=== PATIENT | male | born 1950 | race Caucasian/White ===

== ENCOUNTER 2016-04-01 14:13 | Inpatient (IN) ==
[2016-04-01] MEDS ORDERED: 0.9 % Sodium Chloride 1,000 ML IVC ONE (15:19)
[2016-04-01] MEDS ORDERED: Ondansetron 4 MG/2 ML VIAL IVP ONE (15:20)
--- NOTE | 2016-04-01 15:29 | Emergency Department Note ---
Addendum entered and electronically signed by Flo Coleman DO 04/02/16 00:47: Original Note: Disposition Clinical Impression: Cough, HCAP (healthcare-associated pneumonia) Sepsis Qualifiers: Sepsis type: sepsis due to unspecified organism Qualified Code(s): A41.9 - Sepsis, unspecified organism Melanoma Qualifiers: Melanoma location: upper extremity including shoulder Laterality: right Qualified Code(s): C43.61 - Malignant melanoma of right upper limb, including shoulder Disposition: Admitted As Inpatient Condition: Serious Time of Disposition: 18:25 Nausea/Vomiting/Diarrhea HPI - General Chief complaint: ED Nausea/Vomiting/Diarrhea Stated complaint: N/V/D Time Seen by Provider: 04/01/16 15:02 Source: patient Limitations: no limitations Nursing Notes Reviewed: Yes Vital Signs Reviewed: Yes - History of Present Illness HPI Narrative: Patient is a 65-year-old male who complains of nausea vomiting and diarrhea 4 days. Patient presents with temperature of 100.9, pulse rate 105, respirations 18, blood pressure 112/77, O2 sat 93 and room air. Patient admits to having a cough and intermittent diarrhea and vomiting. Patient states it is not every day though. Patient's fiancee states he has been having a fever of 101 which comes sounds about 99 with Tylenol but goes back up. Patient admits to fatigue , dry cough, and chills. Patient denies a pain. He has a history of melanoma removal of the right shoulder and lymphoid removal the right axillary line about close the patient's armpit. Patient states last time he had high neoplastic drug treatment was back in 02/10/2016. Previous one stent and is on Plavix but has not been able to take it every day secondary to how he is feeling - Related Data Home Medications Medication Instructions Recorded Confirmed Amlodipine [Norvasc] 5 mg PO DAILY 04/01/16 04/01/16 Atorvastatin Calcium [Lipitor] 20 mg PO DAILY 04/01/16 04/01/16 Clopidogrel [Plavix] 75 mg PO DAILY 04/01/16 04/01/16 Fexofenadine HCl 60 mg PO DAILY PRN 04/01/16 04/01/16 Guaifenesin [Mucinex] 600 mg PO BID PRN 04/01/16 04/01/16 Levothyroxine [Synthroid] 25 mcg PO DAILY 04/01/16 04/01/16 Melatonin 5 mg PO HS 04/01/16 04/01/16 Olmesartan Medoxomil [Benicar] 40 mg PO DAILY 04/01/16 04/01/16 Temazepam [Restoril] 15 mg PO HS 04/01/16 04/01/16 Allergies Allergy/AdvReac Type Severity Reaction Status Date / Time No Known Allergies Allergy Verified 02/15/16 16:32 Review of Systems: History admits to nausea, vomiting, diarrhea, cough, fever, chills shortness of breath periodically, wooziness. Patient denies TADEO, sinus pressure, rhinorrhea, chest pain, no Abdominal pain, dysuria, leg swelling, calf pain. All systems ED: reviewed and negative except as stated. Past Medical History - Past Medical History Attestation: Yes The following information was validated with the patient. Medical history: Reports: cancer, coronary artery disease, hypertension, other Psychiatric history: Reports: no psych history - Social History Smoking Status: Former smoker Smokeless Tobacco Status: No Alcohol use: Reports: rarely Drug use: Reports: none Physical Exam Vital Signs Temperature 100.9 F H 04/01/16 14:14 Pulse Rate 105 04/01/16 14:14 Respiratory Rate 18 04/01/16 14:14 Blood Pressure 112/77 04/01/16 14:14 O2 Sat by Pulse Oximetry 93 L 04/01/16 14:14 Temperature 100.9 F H 04/01/16 14:14 Pulse Rate 105 04/01/16 14:14 Respiratory Rate 18 04/01/16 14:14 Blood Pressure 112/77 04/01/16 14:14 O2 Sat by Pulse Oximetry 93 L 04/01/16 14:14 Oxygen Delivery Oxygen Delivery Room Air -General Appearance: Patient is a 65-year-old male who is alert and oriented 3 and in no acute distress. Patient appears exhausted but is able to walk and sit up and speak words of throughout the exam. Patient appears to have slightly increased work of breathing - Head Head exam: atraumatic, normocephalic, normal inspection - Eye Eye exam: Present: normal appearance, PERRL, EOMI, negative for scleral icterus negative for conjunctival pallor - ENT ENT exam: normal exam, normal oropharynx, mucous membranes dry, with thick saliva - Neck Neck exam: Present: normal inspection, full ROM, trachea midline, negative JVD, anterior cervical or submandibular lymphadenopathy - Chest Chest inspection: Present: Patient has bilateral equal rise and fall of chest wall. Non-tender to palpation. 5 cm surgical scar right axillary line just distal to the axilla - Respiratory Respiratory exam: Clear to auscultation bilaterally without wheezes but has fine rales at the base of right lung no rhonchi heard in either lung Cardiovascular Cardiovascular exam: Present: irregular rate, normal rhythm, normal heart sounds , without murmurs rubs or gallops. - Abdominal Exam Abdominal exam: Present: soft, nondistended, Non-Tender light and deep palpation in all quadrants. Bowel sounds normoactive throughout all 4 quadrants. Negative for hyper or hyperresonance. - Extremities Exam Extremities exam: Present: normal inspection, full ROM, and centimeters scar on right deltoid secondary to surgical excision of melanoma - Back Exam Back exam: Present: normal inspection, full ROM. Absent: tenderness, CVA tenderness (R), CVA tenderness (L) - Psychiatric Psychiatric exam: Present: normal affect, normal mood - Skin Skin exam: Present: warm, dry, intact, normal color - General Limitations: no limitations General appearance: alert - Head Head exam: atraumatic, normocephalic Course Course Narrative: Patient was seen and examined, labs ordered, patient is positive for 2 out 4 for SIRS criteria with unclear source of infection. Sepsis work up has been ordered - Reevaluation(s) Reevaluation #1: Pt was rechecked and states that he feels cold and was given warm blankets. He states he feels better afterwards. Time: 15:30 Reevaluation #2: Patient recheck, patient's labs and being drawn right now. Patient states he still feels okay patient now has a jacket as well as a toboggan on. Time: 16:09 Reevaluation #3: Pt still doing well, just feeling cold again. Pt was placed on 3L O2 via NC Time: 16:33 Additional Reevaluation(s): 1700hrs Pt taken for CTA chest. - Consultations Consultation #1: Dr. Islas accepted for admission Time: 18:20 Vital Signs Temperature 100.9 F H 04/01/16 14:14 Pulse Rate 105 04/01/16 14:14 Respiratory Rate 18 04/01/16 14:14 Blood Pressure 112/77 04/01/16 14:14 O2 Sat by Pulse Oximetry 93 L 04/01/16 14:14 Temperature 100.9 F H 04/01/16 14:14 Pulse Rate 109 04/01/16 16:58 Respiratory Rate 96 04/01/16 18:37 Blood Pressure 128/75 04/01/16 18:37 O2 Sat by Pulse Oximetry 95 04/01/16 16:58 Oxygen Delivery Oxygen Delivery Room Air Nausea/Vomiting/Diarrhea - [facility] Narrative Medical decision making narrative: Patient complains of nausea vomiting diarrhea and a history of immunosuppressive therapy presents with a dry cough and febrile at 100.9. I am concerned for sepsis, pneumonia, PE, acute viral respiratory injury illness. Patient is tachycardiac at 105 bpm. EKG shows sinus tach with no acute ST deviations. Patient is to out of 4 for SIRS, no clear source of infection. Given patient has a dry cough and appears dehydrated, 2 view chest x-ray was ordered, 4 mg of Zofran for nausea, and 1 L normal saline. I am concerned for sepsis with his gentleman and have ordered full sepsis workup. WBC 13.0 and lactic acid 2.8. Patient's presentation and history consider this patient's septic until otherwise proven. Patient started on Levaquin, Zosyn, vancomycin for hospitalhealthcare associated-acquired pneumonia is noted the patient was admitted to the [facility] a day stay 1 month ago. Chest x-ray was clear of any abnormalities, patient continues to be tachycardic and has signs of hypoxia. Ordered CTA to check for pulmonary embolism. Patient has a well's score for 4 heart rate greater than 100, possible immobilization greater than 3 days on last returns to the [facility], and malignancy which treatment in the past 6 months. - Medical Records Medical records reviewed: Yes I reviewed the patient's medical records. - Lab Data Result diagrams: 04/01/16 16:08 04/01/16 16:08 Lab Results 04/01/16 04/01/16 04/01/16 Range/Units 16:08 16:08 16:08 WBC 13.0 H (4.3-11.1) K/mcL RBC 4.74 (4.19-5.50) M/mcL Hgb 14.6 (12.9-16.9) g/dL Hct 42.5 (37.5-50.1) % MCV 89.7 (83.0-100.0) fL MCH 30.8 (28.0-33.3) pg MCHC 34.4 (31.6-35.5) g/dL RDW 12.4 (11.5-14.5) % Plt Count 342 (140-400) K/mcL MPV 9.1 L (9.4-12.4) fL Immature Gran % 0.4 (0-4) % Seg Neutrophils % 56.8 % Lymphocytes % 26.9 % Monocytes % 8.5 % Eosinophils % 6.8 % Basophils % 0.6 % Neutrophils # 7.4 (1.6-8.9) K/mcL Lymphocytes # 3.5 (0.6-4.6) K/mcL Monocytes # 1.1 (0.0-1.3) K/mcL Eosinophils # 0.9 H (0.0-0.6) K/mcL Basophils # 0.1 (0.0-0.2) K/mcL PT (9.4-12.1) Seconds INR APTT (26.0-36.0) Seconds Sodium 129 L (136-145) mEq/L Potassium 4.5 (3.5-4.5) mEq/L Chloride 97 L (98-109) mEq/L Carbon Dioxide 20 (19-29) mEq/L BUN 12 (8-26) mg/dL Creatinine 0.98 (0.72-1.25) mg/dL Est GFR ( Amer) > 60 (> 60) Est GFR (Non-Af Amer) > 60 (> 60) BUN/Creatinine Ratio 12 (6-26) Glucose 84 (70-99) mg/dL Calculated Osmolality 267 L (280-300) Lactic Acid (0.5-2.2) mmol/L Calcium 9.7 (8.6-10.8) mg/dL Phosphorus (2.3-4.7) mg/dL Magnesium (1.6-2.6) mg/dL Total Bilirubin (0.2-1.2) mg/dL Direct Bilirubin (0.0-0.5) mg/dL Indirect Bilirubin (0.0-1.2) mg/dL AST (5-34) Units/L ALT (0-55) Units/L Alkaline Phosphatase (38-126) Units/L Troponin I 0.00 (0-0.03) ng/mL Serum Total Protein (6.0-8.3) g/dL Albumin (3.5-5.0) g/dL Globulin (2.4-3.5) g/dL Albumin/Globulin Ratio (1.1-2.2) 04/01/16 04/01/16 04/01/16 Range/Units 16:08 16:08 16:08 WBC (4.3-11.1) K/mcL RBC (4.19-5.50) M/mcL Hgb (12.9-16.9) g/dL Hct (37.5-50.1) % MCV (83.0-100.0) fL MCH (28.0-33.3) pg MCHC (31.6-35.5) g/dL RDW (11.5-14.5) % Plt Count (140-400) K/mcL MPV (9.4-12.4) fL Immature Gran % (0-4) % Seg Neutrophils % % Lymphocytes % % Monocytes % % Eosinophils % % Basophils % % Neutrophils # (1.6-8.9) K/mcL Lymphocytes # (0.6-4.6) K/mcL Monocytes # (0.0-1.3) K/mcL Eosinophils # (0.0-0.6) K/mcL Basophils # (0.0-0.2) K/mcL PT 15.4 H (9.4-12.1) Seconds INR 1.4 APTT 36.3 H (26.0-36.0) Seconds Sodium (136-145) mEq/L Potassium (3.5-4.5) mEq/L Chloride (98-109) mEq/L Carbon Dioxide (19-29) mEq/L BUN (8-26) mg/dL Creatinine (0.72-1.25) mg/dL Est GFR ( Amer) (> 60) Est GFR (Non-Af Amer) (> 60) BUN/Creatinine Ratio (6-26) Glucose (70-99) mg/dL Calculated Osmolality (280-300) Lactic Acid 2.8 H (0.5-2.2) mmol/L Calcium (8.6-10.8) mg/dL Phosphorus 4.1 (2.3-4.7) mg/dL Magnesium 1.5 L (1.6-2.6) mg/dL Total Bilirubin 1.3 H (0.2-1.2) mg/dL Direct Bilirubin 0.6 H (0.0-0.5) mg/dL Indirect Bilirubin 0.7 (0.0-1.2) mg/dL AST 22 (5-34) Units/L ALT 12 (0-55) Units/L Alkaline Phosphatase 137 H (38-126) Units/L Troponin I (0-0.03) ng/mL Serum Total Protein 8.3 (6.0-8.3) g/dL Albumin 3.4 L (3.5-5.0) g/dL Globulin 4.9 H (2.4-3.5) g/dL Albumin/Globulin Ratio 0.7 L (1.1-2.2) - Radiology Data Radiology results reviewed: No I reviewed the patient's radiology results. Chest X-Ray 04/01/16 15:19 IMPRESSION: 1. No radiographic finding to account for patient's cough and fever. D/ / Srinivasan Sheehan MD / Srinivasan Sheehan MD Interpreting Provider: Srinivasan Sheehan MD - EKG Data EKG attestation: Yes I reviewed and interpreted this EKG. EKG results narrative: EKG dated 04/01/2016 at 1544 hrs. shows a tachycardic heart rate of 10 4 bpm with an underlying sinus rhythm. EKG shows right bundle-branch block, but previous EKG dated 1128 2015 shows a sinus rhythm at a rate of 92 beats minute with bundle-branch block of EKGs looked similar to the exception of the rate. Attestation Statement - Attestation Attestation: I examined this patient and my medical decision-making was reviewed with the Resident Physician. I agree with the documented findings, disposition and treatment plan as described except to the extent set forth below. Fever, dehydration, and 3/4 positive SIRS criteria. Has cough, left basilar rales, hypoxia. PE ruled out. No other source of infection, suspicious for pneumonia not seen on XR d/t dehydration, suspect that we will see an infiltrate after hydration. Treat for HCAP, 30 cc/kg fluids given d/t elevated lactate. Admitted.
[2016-04-01 16:19] LABS: Basophils # 0.1 K/mcL (0.0-0.2); Basophils % 0.6 %; Eosinophils # 0.9 K/mcL (0.0-0.6); Eosinophils % 6.8 %; Hematocrit 42.5 % (37.5-50.1); Hemoglobin 14.6 g/dL (12.9-16.9); Immature Granulocytes % 0.4 % (0-4); Lymphocytes # 3.5 K/mcL (0.6-4.6); Lymphocytes % 26.9 %; Mean Corpuscular HGB Conc 34.4 g/dL (31.6-35.5); Mean Corpuscular Hemoglobin 30.8 pg (28.0-33.3); Mean Corpuscular Volume 89.7 fL (83.0-100.0); Mean Platelet Volume 9.1 fL (9.4-12.4); Monocytes # 1.1 K/mcL (0.0-1.3); Monocytes % 8.5 %; Neutrophils # 7.4 K/mcL (1.6-8.9); Platelet Count 342 K/mcL (140-400); Red Blood Count 4.74 M/mcL (4.19-5.50); Red Cell Distribution Width 12.4 % (11.5-14.5); Segmented Neutrophils % 56.8 %
[2016-04-01 16:23] LABS: INR 1.4; Prothrombin Time 15.4 Seconds (9.4-12.1)
[2016-04-01 16:26] LABS: Activated Partial Thrombo Time 36.3 Seconds (26.0-36.0)
[2016-04-01 16:32] LABS: BUN/Creatinine Ratio 12 (6-26); Blood Urea Nitrogen 12 mg/dL (8-26); Calcium 9.7 mg/dL (8.6-10.8); Carbon Dioxide 20 mEq/L (19-29); Chloride 97 mEq/L (98-109); Glucose 84 mg/dL (70-99); Osmolality,Calculated 267 (280-300); Potassium 4.5 mEq/L (3.5-4.5); Sodium 129 mEq/L (136-145); eGFR For African Americans > 60 (> 60); eGFR For Non-African Americans > 60 (> 60)
[2016-04-01 16:33] LABS: Albumin 3.4 g/dL (3.5-5.0); Albumin/Globulin Ratio 0.7 (1.1-2.2); Bilirubin,Direct 0.6 mg/dL (0.0-0.5); Bilirubin,Indirect 0.7 mg/dL (0.0-1.2); Bilirubin,Total 1.3 mg/dL (0.2-1.2); Globulin 4.9 g/dL (2.4-3.5); Magnesium 1.5 mg/dL (1.6-2.6); Phosphorous 4.1 mg/dL (2.3-4.7); Total Protein 8.3 g/dL (6.0-8.3)
[2016-04-01] MEDS ORDERED: Levofloxacin 750 MG/150 ML 750 MG/150 ML BAG IVPB ONE (16:54)
[2016-04-01] MEDS ORDERED: Vancomycin 1,250 MG in D5% in Water 250 ML IVPB ONE (16:54)
[2016-04-01] MEDS ORDERED: Piperacillin/Tazobactam 3.375 GM in D5% in Water (Mini-Bag+) 100 ML IVPB ONE (16:54)
[2016-04-01] MEDS: 0.9 % Sodium Chloride 1,000 ML IVC SCH ×2 (17:30→19:40)
[2016-04-01 18:56] LABS: Bilirubin,Urine Negative (Negative); Blood,Urine Small (Negative); Clarity,Urine Clear (Clear); Color,Urine Yellow (Yellow); Glucose,Urine (UA) Normal (Normal); Ketones,Urine Trace mg/dL (Negative); Leukocyte Esterase,Urine Negative (Negative); Nitrite,Urine Negative (Negative); PH,Urine 5.5 pH Units (5.0-8.0); Protein,Urine Negative (Neg-Trace); Specific Gravity,Urine > 1.030 (1.010-1.025); Urobilinogen,Urine Normal (Normal)
[2016-04-01 18:58] LABS: Bacteria,Urine None Seen per hpf (None-Few); Hyaline Casts,Urine None Seen per lpf (None-Few); RBC,Urine 0-3 per hpf (0-3); Squamous Epithelial Cell,Urine Few per lpf (None-Few); WBC,Urine 0-3 per hpf (0-3)
[2016-04-01] MEDS ORDERED: *HR* Promethazine 25 MG/ML VIAL IVP PRN (21:25)
[2016-04-01] MEDS ORDERED: Naloxone 0.4 MG/ML INJ IVP PRN (21:25)
[2016-04-01] MEDS ORDERED: *HR* OxyCODONE Immed Rel 5 MG TABLET PO PRN (21:25)
[2016-04-01] MEDS ORDERED: Magnesium Sulfate 2 GM in D5% in Water 100 ML IVPB ONE (21:25)
[2016-04-01] MEDS ORDERED: Acetaminophen 325 MG TABLET PO PRN (21:25)
[2016-04-01] MEDS ORDERED: *HR* Morphine 2 MG/ML SYRINGE IVP PRN (21:25)
[2016-04-01] MEDS ORDERED: Albuterol 2.5 MG/3 ML NEBULIZER IH PRN (21:25)
[2016-04-01] MEDS ORDERED: 0.9 % Sodium Chloride 1,000 ML IVC SCH (21:30)
--- NOTE | 2016-04-01 21:50 | Internal Med History&Physical ---
Date of Encounter: 04/01/16 Time of Encounter: 21:00 Assessment and Plan (1) Nausea, vomiting, and diarrhea Current visit: Yes Status: Acute . (2) History of malignant melanoma Current visit: Yes Status: Chronic . (3) Obesity (BMI 30-39.9) Current visit: Yes Status: Chronic . (4) Hypertension Current visit: Yes Status: Chronic . Qualifiers: Hypertension type: unspecified secondary hypertension Qualified Code(s): I15.9 - Secondary hypertension, unspecified; I15 - Secondary hypertension (5) Dyslipidemia Current visit: Yes Status: Chronic . (6) CAD (coronary artery disease), [place] coronary artery Current visit: Yes Status: Chronic . Qualifiers: [place] vs. transplanted heart: [place] heart Associated angina: without angina Qualified Code(s): I25.10 - Atherosclerotic heart disease of [place] coronary artery without angina pectoris (7) History of PTCA Current visit: Yes Status: Chronic . (8) Systemic inflammatory response syndrome (SIRS) Current visit: Yes Status: Acute . (9) Acute and chronic respiratory failure with hypoxia Current visit: Yes Status: Acute . (10) Hyponatremia with decreased serum osmolality Current visit: Yes Status: Acute . (11) Lactic acidosis Current visit: Yes Status: Acute . (12) Hypomagnesemia Current visit: Yes Status: Acute . (13) Transaminitis Current visit: Yes Status: Acute . (14) HCAP (healthcare-associated pneumonia) Current visit: Yes Status: Acute . (15) Sepsis Current visit: Yes Status: Acute . Qualifiers: Sepsis type: sepsis due to unspecified organism Qualified Code(s): A41.9 - Sepsis, unspecified organism (16) Acute gastroenteritis Current visit: Yes Status: Acute . (17) Atypical pneumonia Current visit: Yes Status: Acute . Internal Medicine - H&P: HPI Chief complaint: Nausea vomiting diarrhea Admitted From: Emergency Dept Plans for Post Hospital Care: Home History of present illness: Mr. Hancock is a 65 year old male with medical history significant for CAD/PTCA stent, hypertension, dyslipidemia, internal hemorrhoids/hematochezia, diverticulosis coli, sleep disorder, hypothyroidism, allergic rhinitis, H/O melanoma s/p excision+adjuvant chemotherapy, osteoarthritis, osteopenia, obesity , former smoker. The patient was visited and interviewed and examined. The patient is admitted to [facility] via the emergency department when he presented with complaints of intractable nausea vomiting and diarrhea. Patient presented with symptoms of progressive over a 4-5 day period of time. Patient reported subjective fevers chills or malaise. She had been measured as high as 101 but responsive to Tylenol. Cough intermittently productive of scant sputum noted. Intermittent diarrhea and nausea with vomiting noted. No evidence for hematemesis melena (. Denied dysuria frequency hematuria. Patient acknowledges generalized malaise and easy fatigability by cough shortness of air. Patient also carries a history of malignant melanoma status post excision from right shoulder as well as lymphoid tissue removal right axillary line last chemotherapy received in January 2016. He denies influenza vaccination this season or pneumococcal vaccinations. Findings in the ED: Temperature 100.9 pulse 105-109 respiration 18-26 BP 112-128/75-77 O2 saturation 93-95% room air. WBC 13 hemoglobin 14.6 platelets 342,000. MPV 9.1. Differential shows an increase in neutrophils. Metabolic panel showed sodium 129 chloride 97. BUN 12 creatinine 0.98. Osmolality 267. Troponin 0.0. PT 15.4 INR 1.4 PTT 36.3. Lactic acid 2.8. Hepatic function notes total bilirubin 1.3 direct 0.6. Alkaline phosphatase 137. Albumin 3.4-8.3 globulin 4.9. Magnesium 1.5 phosphorus 4.1. Chest x-ray demonstrated no radiographic evidence of acute or active cardiopulmonary process. Calcified granulomata and right lung. Cardiomediastinal silhouette within normal limits. Sclera no focal consolidation or effusion or edema or pneumothorax. CTA chest finds no evidence of pulmonary embolic disease. Bilateral pulmonary infiltrates predominantly within the upper lobes consistent with pneumonia. Mediastinal and bilateral hilar adenopathy likely reactive. Mild atherosclerotic plaque. Scattered atherosclerotic coronary disease. No pericardial effusion. EKG shows sinus tachycardia (104) right bundle-branch block. Preliminary impressions suggest acute on chronic obstructive pulmonary disease exacerbation with associated bilateral, multifocal (atypical) pneumonia. Acute on chronic hypoxic respiratory failure and acute gastroenteritis complicates presentation. Systemic inflammatory response syndrome criteria as well as sepsis criteria for filled at the time of admission. Metabolic derangements are noted including the lactic acidemia, hyperbilirubinemia, [id number] , hypomagnesemia, etc. Her presenting concerns, past medical history, clinical findings and comorbidities the patient presents risk for further acute clinical decline and morbidity in this presentation. Workup and treatment will progress comprehensively. Cumulative laboratory and radiographic data base was reviewed, considered and discussed. Pertinent ancillary medical records including ECW and PCI documentation, when available, was reviewed and considered. Given the patient's presenting concerns, past medical history, clinical findings and symptoms, he is admitted at this time will undergo further evaluation and disposition. Orders were written as per the computerized physician order processing specialist system.......................................................................... .................... Consultative opinions will be sought as clinical circumstances justify. Pain management needs will be addressed. Laboratory and radiographic data base will be updated as appropriate. Studies include: Cultures of blood and urine and sputum, Legionella and streptococcal pneumoniae urine antigens, cardiac injury panel, BNP, metabolic and hematologic panel, magnesium, phosphorus, ionized calcium, thyroid panel, lipid profile, A1c , C-peptide, CRP, sedimentation rate, respiratory infection profile, respiratory virus panel, blood gas, urinalysis, lactic acid, serologies, etc. Precautions: Aspiration, fall, delirium protocol/surveillance initiated. Telemetry with continuous hemodynamic monitoring and pulse oximetry initiated. Empiric antibiotic coverage: (HCAP) Intravenous vancomycin, Zosyn and Levaquin pending culture data. Special studies: CTA chest, chest x-ray, telemetry, EKG. Pulmonary toilet: Incentive spirometry, aerosol bronchodilator, mucolytic, antitussive, supplemental oxygen. Corticosteroid therapy. CPAP/BiPAP supplemental oxygen delivery. Aerosol Mucomyst therapy. Fluid and electrolyte repletion efforts will proceed. Careful attention to fluid balance and renal recovery will be emphasized. Avoidance of nephrotoxic exposure and adverse drug drug interaction in the setting of impaired renal function will be monitored closely. Acute coronary syndrome protocol/surveillance initiated. DVT and PUD prophylaxis initiated: PPI therapy, intermittent pneumatic cuffs. Subcutaneous heparin/lovenox. Early ambulation will be encouraged. Immunization updates recommended. Influenza and pneumococcal vaccinations as part of ongoing preventative healthcare recommendations strongly recommended. Smoking cessation counseling briefly addressed. Patient is a former smoker. Continue vegetation were provided on an aspirin request basis Advanced care directive discussion briefly addressed. Patient does not declare any healthcare restrictions at this time. Cardiovascular risk appraisal and cardiovascular risk reduction efforts will be emphasized. Physical and occupational therapy may be consulted to assess patient's functional capacity and progress mobility if circumstances justify. Outpatient medication schedules will be reviewed confirmed and facilitated as appropriate. Reconciliation of home treatments including adjustments, substitutions and reintroduction into the treatment regimen will address necessary maintenance therapies for chronic pre-existing medical conditions. Plan of care has been reviewed and discussed in detail with the patient. Questions addressed. Hospital course in dependent on clinical findings, treatment response and potential consultative interventions. Patient is at risk for further acute clinical decline and morbidity due to his presenting chief complaints, clinical findings and comorbidities. Condition is serious. Prognosis is cautiously optimistic. CODE STATUS is full. Past Med Surg Social Fam HX - Past Medical History Source: old records reviewed Medical history: arthritis, cancer, coronary artery disease, GI bleed (Internal hemorrhoids. Diverticulosis coli.), hyperlipidemia, hypertension, osteoporosis , peripheral artery disease, thyroid disease, other Psychiatric history: no psych history - Past Surgical History Surgical History: angioplasty/stent, other (Colonoscopy. EGD.) - Social History Smoking Status: Former smoker Smokeless Tobacco Status: No Alcohol use: rarely Drug use: none - Family History Father Living Status: Hx Family Cardiac Disorders: Yes ([place]) Hx Family Respiratory Disorders: No Hx Family Cancer: No Hx Family GI Disorders: No Hx Family Genitourinary Disorders: No Hx Family Endocrine Disorder: No Hx Family Musculoskeletal Disorders: No Hx Family Neuromuscular Disorders: No Hx Family Neurologic Disorders: No Hx Family HEENT Disorders: No Hx Family Autoimmune Disorders: No Hx Family Reproductive Disorders: No Hx Family Psychosocial Disorders: No Hx Family Medical Disorders: No Mother Living Status: Still Living Hx Family Cardiac Disorders: No Hx Family Respiratory Disorders: No Hx Family Cancer: No Hx Family GI Disorders: No Hx Family Genitourinary Disorders: No Hx Family Endocrine Disorder: Yes Hx Family Musculoskeletal Disorders: No Hx Family Neuromuscular Disorders: No Hx Family Neurologic Disorders: No Hx Family HEENT Disorders: No Hx Family Autoimmune Disorders: No Hx Family Reproductive Disorders: No Hx Family Psychosocial Disorders: No Hx Family Medical Disorders: No Internal Medicine - H&P: Meds Amlodipine [Norvasc] 5 mg PO DAILY 04/01/16 [History] Atorvastatin Calcium [Lipitor] 20 mg PO DAILY 04/01/16 [History] Clopidogrel [Plavix] 75 mg PO DAILY 04/01/16 [History] Fexofenadine HCl 60 mg PO DAILY PRN 04/01/16 [History] Guaifenesin [Mucinex] 600 mg PO BID PRN 04/01/16 [History] Levothyroxine [Synthroid] 25 mcg PO DAILY 04/01/16 [History] Melatonin 5 mg PO HS 04/01/16 [History] Olmesartan Medoxomil [Benicar] 40 mg PO DAILY 04/01/16 [History] Temazepam [Restoril] 15 mg PO HS 04/01/16 [History] Allergies No Known Allergies Allergy (Verified 02/15/16 16:32) All Systems PM: A 10-system review of systems was performed and is negative for pertinent findings except as documented above in the HPI. - Constitutional Constitutional: as per HPI, fever(s), malaise, no chills, no night sweats - EENT Eyes: as per HPI, no change in vision, no discharge, no pain, no photophobia Ears: as per HPI, no ear discharge, no ear pain, no tinnitus Nose, mouth and throat: as per HPI, nasal congestion, post-nasal drip, no dysphagia, no nasal discharge, no neck pain, no sore throat - Cardiovascular Cardiovascular ROS IM: as per HPI, no chest pain, no diaphoresis, no dyspnea, no lightheadedness, no palpitations, no syncope - Respiratory Respiratory: as per HPI, cough, dyspnea, chest congestion, other, no wheezing, no excessive phlegm production - Gastrointestinal Gastrointestinal: as per HPI, change in bowel habits, diarrhea, nausea, vomiting , other, no abdominal pain, no coffee ground emesis, no hematemesis, no hematochezia, no melena - Genitourinary Genitourinary ROS male: as per HPI, no difficulty urinating, no dysuria, no hematuria - Musculoskeletal Musculoskeletal ROS IM: as per HPI, myalgias, no numbness, no tingling - Integumentary Integumentary IM: as per HPI, no rash, no unusual bruising - Neurological Neurological ROS: as per HPI, no confusion, no convulsions, no focal weakness, no numbness, no tingling, no tremor(s) - Psychiatric Psychiatric: as per HPI - Endocrine Endocrine IM: as per HPI - Hematologic/Lymphatic Hematologic/Lymphatic: as per HPI, no easy bruising - Allergic/Immunologic Allergic/Immunologic: as per HPI - Constitutional Vitals: Temp Pulse Resp BP Pulse Ox 98.8 F 96 24 118/65 96 04/01/16 19:29 04/01/16 19:29 04/01/16 19:29 04/01/16 19:29 04/01/16 19:34 General appearance: Present: cooperative, A&O X 3, obese, severe distress, answers questions appropriately - Head Head exam: Present: atraumatic, normocephalic - Eye Eye exam: Present: EOMI, PERRL, conjuntiva pink, sclera anicteric Pupils: Present: normal accommodation, PERRL - ENT ENT exam: Present: mucous membranes moist, normal external ear exam, normal oropharynx - Neck Neck exam general surgery: Present: supple, trachea midline. Absent: lymphadenopathy, tenderness, nuchal rigidity - Respiratory Respiratory exam: Present: accessory muscle use, chest wall tenderness, decreased breath sounds, respiratory distress, rhonchi, wheezes, tachypnea. Absent: prolonged expiratory phase, rales, stridor - Cardiovascular Cardiovascular exam: Present: RRR, +S1, +S2, tachycardia. Absent: diastolic murmur, gallop, rubs, systolic murmur - GI/Abdominal GI/Abdominal exam: Present: normal bowel sounds, soft, no peritoneal signs. Absent: distended, tenderness - Extremities Exam Extremities exam: Present: full ROM, warm, radial pulses palpable and symetrical. Absent: calf tenderness, cyanotic, pedal edema - Neurological Exam Neurological exam: Present: alert, altered, CN II-XII intact, oriented X3, no focal deficits. Absent: pronater drift, facial droop, speech deficit - Expanded Neurological Exam Neurological exam expanded: Present: protecting the airway. Absent: ataxia, expressive aphasia, receptive aphasia Patient oriented to: Present: person, place, time Speech: Present: fluid speech Coma Scale Eye Opening: Spontaneous Coma Scale Motor Response: Obeys Commands Coma Scale Verbal Response: Oriented Coma Scale Total: 15 - Psychiatric Psychiatric exam: Present: normal affect, normal mood - Skin Skin exam: Present: dry, intact, warm. Absent: petechiae, rash, urticaria, vesicles Internal Med - H&P Results - Labs CBC & Chem 7: 04/02/16 03:05 04/02/16 03:05 Labs: Urine 04/01/16 Range/Units 18:45 Urine Color Yellow (Yellow) Urine Clarity Clear (Clear) Urine pH 5.5 (5.0-8.0) pH Units Ur Specific [place] > 1.030 H (1.010-1.025) Urine Protein Negative (Neg-Trace) mg/dL Urine Glucose (UA) Normal (Normal) mg/dL - Impressions Vital Signs Temp Pulse Resp BP Pulse Ox 04/01/16 19:34 96 04/01/16 19:29 98.8 F 96 24 118/65 96 04/01/16 18:37 96 128/75 04/01/16 16:58 109 18 152/89 95 04/01/16 14:44 111 18 159/89 96 04/01/16 14:14 100.9 F H 105 18 112/77 93 L Intake and Output 04/01/16 04/01/16 04/01/16 07:59 15:59 23:59 Intake Total 1100 / 1100 Balance 1100 / 1100 Intake: IV Fluids 1100 / 1100 0.9 % Sodium Chloride 1, 1000 / 1000 000 ML @ 3750 mls/hr IVC .Q16M ONE Rx#:[id number] Zosyn 3.375 GM In 100 / 100 Dextrose 5% (Minibag+) 100 ML 100 ML @ 100 mls/ hr IVPB ONCE ONE Rx#: [id number] Other: Weight 93.44 kg 95.6 kg Patient Weight 04/01/16 23:59 Weight 95.6 kg Short CBC 04/01/16 Range/Units 16:08 WBC 13.0 H (4.3-11.1) K/mcL Hgb 14.6 (12.9-16.9) g/dL Hct 42.5 (37.5-50.1) % Plt Count 342 (140-400) K/mcL Neutrophils # 7.4 (1.6-8.9) K/mcL BMP 04/01/16 Range/Units 16:08 Sodium 129 L (136-145) mEq/L Potassium 4.5 (3.5-4.5) mEq/L Chloride 97 L (98-109) mEq/L Carbon Dioxide 20 (19-29) mEq/L BUN 12 (8-26) mg/dL Creatinine 0.98 (0.72-1.25) mg/dL Glucose 84 (70-99) mg/dL Calcium 9.7 (8.6-10.8) mg/dL Cardiac Enzymes 04/01/16 Range/Units 16:08 Troponin I 0.00 (0-0.03) ng/mL Liver Function 04/01/16 Range/Units 16:08 Total Bilirubin 1.3 H (0.2-1.2) mg/dL Direct Bilirubin 0.6 H (0.0-0.5) mg/dL AST 22 (5-34) Units/L ALT 12 (0-55) Units/L Alkaline Phosphatase 137 H (38-126) Units/L Albumin 3.4 L (3.5-5.0) g/dL Urine 04/01/16 Range/Units 18:45 Urine Color Yellow (Yellow) Urine Clarity Clear (Clear) Urine pH 5.5 (5.0-8.0) pH Units Ur Specific [place] > 1.030 H (1.010-1.025) Urine Protein Negative (Neg-Trace) mg/dL Urine Glucose (UA) Normal (Normal) mg/dL Abnormal lab results WBC 13.0 K/mcL (4.3-11.1) H 04/01/16 16:08 MPV 9.1 fL (9.4-12.4) L 04/01/16 16:08 Eosinophils # 0.9 K/mcL (0.0-0.6) H 04/01/16 16:08 PT 15.4 Seconds (9.4-12.1) H 04/01/16 16:08 APTT 36.3 Seconds (26.0-36.0) H 04/01/16 16:08 Sodium 129 mEq/L (136-145) L 04/01/16 16:08 Chloride 97 mEq/L (98-109) L 04/01/16 16:08 Calculated Osmolality 267 (280-300) L 04/01/16 16:08 Magnesium 1.5 mg/dL (1.6-2.6) L 04/01/16 16:08 Total Bilirubin 1.3 mg/dL (0.2-1.2) H 04/01/16 16:08 Direct Bilirubin 0.6 mg/dL (0.0-0.5) H 04/01/16 16:08 Alkaline Phosphatase 137 Units/L (38-126) H 04/01/16 16:08 Albumin 3.4 g/dL (3.5-5.0) L 04/01/16 16:08 Globulin 4.9 g/dL (2.4-3.5) H 04/01/16 16:08 Albumin/Globulin Ratio 0.7 (1.1-2.2) L 04/01/16 16:08 Ur Specific [place] > 1.030 (1.010-1.025) H 04/01/16 18:45 Urine Ketones Trace mg/dL (Negative) H 04/01/16 18:45 Urine Blood Small (Negative) H 04/01/16 18:45 Allergies Allergy/AdvReac Type Severity Reaction Status Date / Time No Known Allergies Allergy Verified 02/15/16 16:32 Laboratory Results WBC 13.0 K/mcL (4.3-11.1) H 04/01/16 16:08 RBC 4.74 M/mcL (4.19-5.50) 04/01/16 16:08 Hgb 14.6 g/dL (12.9-16.9) 04/01/16 16:08 Hct 42.5 % (37.5-50.1) 04/01/16 16:08 MCV 89.7 fL (83.0-100.0) 04/01/16 16:08 MCH 30.8 pg (28.0-33.3) 04/01/16 16:08 MCHC 34.4 g/dL (31.6-35.5) 04/01/16 16:08 RDW 12.4 % (11.5-14.5) 04/01/16 16:08 Plt Count 342 K/mcL (140-400) 04/01/16 16:08 MPV 9.1 fL (9.4-12.4) L 04/01/16 16:08 Immature Gran % 0.4 % (0-4) 04/01/16 16:08 Seg Neutrophils % 56.8 % 04/01/16 16:08 Lymphocytes % 26.9 % 04/01/16 16:08 Monocytes % 8.5 % 04/01/16 16:08 Eosinophils % 6.8 % 04/01/16 16:08 Basophils % 0.6 % 04/01/16 16:08 Neutrophils # 7.4 K/mcL (1.6-8.9) 04/01/16 16:08 Lymphocytes # 3.5 K/mcL (0.6-4.6) 04/01/16 16:08 Monocytes # 1.1 K/mcL (0.0-1.3) 04/01/16 16:08 Eosinophils # 0.9 K/mcL (0.0-0.6) H 04/01/16 16:08 Basophils # 0.1 K/mcL (0.0-0.2) 04/01/16 16:08 PT 15.4 Seconds (9.4-12.1) H 04/01/16 16:08 INR 1.4 04/01/16 16:08 APTT 36.3 Seconds (26.0-36.0) H 04/01/16 16:08 Sodium 129 mEq/L (136-145) L 04/01/16 16:08 Potassium 4.5 mEq/L (3.5-4.5) 04/01/16 16:08 Chloride 97 mEq/L (98-109) L 04/01/16 16:08 Carbon Dioxide 20 mEq/L (19-29) 04/01/16 16:08 BUN 12 mg/dL (8-26) 04/01/16 16:08 Creatinine 0.98 mg/dL (0.72-1.25) 04/01/16 16:08 Est GFR ( Amer) > 60 (> 60) 04/01/16 16:08 Est GFR (Non-Af Amer) > 60 (> 60) 04/01/16 16:08 BUN/Creatinine Ratio 12 (6-26) 04/01/16 16:08 Glucose 84 mg/dL (70-99) 04/01/16 16:08 Calculated Osmolality 267 (280-300) L 04/01/16 16:08 Lactic Acid 1.8 mmol/L (0.5-2.2) 04/01/16 18:52 Calcium 9.7 mg/dL (8.6-10.8) 04/01/16 16:08 Phosphorus 4.1 mg/dL (2.3-4.7) 04/01/16 16:08 Magnesium 1.5 mg/dL (1.6-2.6) L 04/01/16 16:08 Total Bilirubin 1.3 mg/dL (0.2-1.2) H 04/01/16 16:08 Direct Bilirubin 0.6 mg/dL (0.0-0.5) H 04/01/16 16:08 Indirect Bilirubin 0.7 mg/dL (0.0-1.2) 04/01/16 16:08 AST 22 Units/L (5-34) 04/01/16 16:08 ALT 12 Units/L (0-55) 04/01/16 16:08 Alkaline Phosphatase 137 Units/L (38-126) H 04/01/16 16:08 Troponin I 0.00 ng/mL (0-0.03) 04/01/16 16:08 Serum Total Protein 8.3 g/dL (6.0-8.3) 04/01/16 16:08 Albumin 3.4 g/dL (3.5-5.0) L 04/01/16 16:08 Globulin 4.9 g/dL (2.4-3.5) H 04/01/16 16:08 Albumin/Globulin Ratio 0.7 (1.1-2.2) L 04/01/16 16:08 Urine Color Yellow (Yellow) 04/01/16 18:45 Urine Clarity Clear (Clear) 04/01/16 18:45 Urine pH 5.5 pH Units (5.0-8.0) 04/01/16 18:45 Ur Specific [place] > 1.030 (1.010-1.025) H 04/01/16 18:45 Urine Protein Negative mg/dL (Neg-Trace) 04/01/16 18:45 Urine Glucose (UA) Normal mg/dL (Normal) 04/01/16 18:45 Urine Ketones Trace mg/dL (Negative) H 04/01/16 18:45 Urine Blood Small (Negative) H 04/01/16 18:45 Urine Nitrite Negative (Negative) 04/01/16 18:45 Urine Bilirubin Negative (Negative) 04/01/16 18:45 Urine Urobilinogen Normal mg/dL (Normal) 04/01/16 18:45 Ur Leukocyte Esterase Negative (Negative) 04/01/16 18:45 Urine Microscopic RBC 0-3 per hpf (0-3) 04/01/16 18:45 Urine Microscopic WBC 0-3 per hpf (0-3) 04/01/16 18:45 Ur Squamous Epith Cells Few per lpf (None-Few) 04/01/16 18:45 Urine Bacteria None Seen per hpf (None-Few) 04/01/16 18:45 Hyaline Casts None Seen per lpf (None-Few) 04/01/16 18:45 Ur Culture Indicated? NO (NO) 04/01/16 18:45 Impressions Chest X-Ray 04/01/16 15:19 IMPRESSION: 1. No radiographic finding to account for patient's cough and fever. D/ / Srinivasan Sheehan MD / Srinivasan Sheehan MD Interpreting Provider: Srinivasan Sheehan MD Chest CTA 04/01/16 16:48 IMPRESSION: 1. No evidence of pulmonary embolic disease. 2. Bilateral pulmonary infiltrates, predominantly within the upper lobes, consistent with pneumonia. 3. Prominent mediastinal and bilateral hilar adenopathy, likely reactive. Given the history of malignancy, continued CT follow-up recommended. D/ / 04/01/2016 17:41:06 Sami Locke MD / nicholas Interpreting Provider: Sami Locke MD
[2016-04-01] MEDS ORDERED: Diphenoxylate/Atropine 1 TAB TABLET PO STA (22:00)
[2016-04-01] MEDS ORDERED: Melatonin 3 MG TABLET PO STA (22:00)
[2016-04-01] MEDS ORDERED: Temazepam 15 MG CAPSULE PO STA (22:00)
[2016-04-01] MEDS ORDERED: Vancomycin 1,500 MG in D5% in Water 250 ML IVPB SCH (22:00)
[2016-04-01 22:05] LABS: VBG HCO3 23.2 mEq/L (21-27); VBG PH 7.31 pH Units (7.32-7.42)
[2016-04-01] MEDS: Ipratropium/Albuterol Neb 3 ML IH SCH (22:34)
[2016-04-01] MEDS: Benzonatate 100 MG CAPSULE PO PRN (22:44)
[2016-04-02 01:24] LABS: Adenovirus Not Detected (Not Detect); Bordetella Pertussis Not Detected (Not Detect); Chlamydophila pneumoniae Not Detected (Not Detect); Coronavirus 229E Not Detected (Not Detect); Coronavirus HKU1 Not Detected (Not Detect); Coronavirus NL63 Not Detected (Not Detect); Coronavirus OC43 Not Detected (Not Detect); Human Metapneumovirus Not Detected (Not Detect); Human Rhinovirus/Enterovirus Not Detected (Not Detect); Influenza A Subtype 2009 H1 Not Detected (Not Detect); Influenza A Untypeable Not Detected (Not Detect); Influenza B Not Detected (Not Detect); Mycoplasma pneumoniae Not Detected (Not Detect); Parainfluenza Virus 1 Not Detected (Not Detect); Parainfluenza Virus 2 Not Detected (Not Detect); Parainfluenza Virus 3 Not Detected (Not Detect); Parainfluenza Virus 4 Not Detected (Not Detect); Respiratory Syncytial Virus Not Detected (Not Detect)
[2016-04-02] MEDS ORDERED: Ipratropium/Albuterol Neb 3 ML IH STA (01:38)
[2016-04-02] MEDS ORDERED: methylPREDNISolone 125 MG/2 ML VIAL IVP STA (01:38)
[2016-04-02] MEDS ORDERED: Calcium Gluconate 2,000 MG in D5% in Water 100 ML IVPB ONE (01:40)
[2016-04-02] MEDS: 0.9 % Sodium Chloride 1,000 ML IVC SCH ×2 (01:59→14:33)
[2016-04-02 03:15] LABS: Hematocrit 37.4 % (37.5-50.1); Mean Corpuscular HGB Conc 34.2 g/dL (31.6-35.5); Mean Corpuscular Hemoglobin 31.2 pg (28.0-33.3); Mean Corpuscular Volume 91.2 fL (83.0-100.0); Mean Platelet Volume 9.1 fL (9.4-12.4); Platelet Count 283 K/mcL (140-400); Red Cell Distribution Width 12.9 % (11.5-14.5)
[2016-04-02 03:19] LABS: Hemoglobin 12.8 g/dL (12.9-16.9)
[2016-04-02 03:33] LABS: BUN/Creatinine Ratio 10 (6-26); Blood Urea Nitrogen 10 mg/dL (8-26); C-Reactive Protein 139 mg/L (Less than 5); Calcium 8.6 mg/dL (8.6-10.8); Carbon Dioxide 18 mEq/L (19-29); Chloride 101 mEq/L (98-109); Chol/HDL Ratio 6.4 (0-4.9); Glucose 102 mg/dL (70-99); HDL Cholesterol 11 mg/dL (40-59); LDL Cholesterol,Calculated 43 mg/dL (0-99); Osmolality,Calculated 263 (280-300); Phosphorous 3.9 mg/dL (2.3-4.7); Potassium 4.7 mEq/L (3.5-4.5); Sodium 127 mEq/L (136-145); Triglycerides 78 mg/dL (< 150); eGFR For African Americans > 60 (> 60); eGFR For Non-African Americans > 60 (> 60)
[2016-04-02 03:35] LABS: Cholesterol 70 mg/dL (< 200)
[2016-04-02] MEDS: Ipratropium/Albuterol Neb 3 ML IH SCH ×4 (04:14→22:28)
[2016-04-02] MEDS: Vancomycin 2,000 MG in D5% in Water 500 ML IVPB SCH (05:15)
[2016-04-02] MEDS: Benzonatate 100 MG CAPSULE PO PRN ×4 (05:17→23:32)
[2016-04-02 05:41] LABS: Thyroid Stimulating Hormone 0.392 mcIU/mL (0.350-4.840)
--- NOTE | 2016-04-02 08:26 | Internal Med Progress Note ---
Date of Encounter: 04/03/16 Time of Encounter: 08:23 - Assessment and plan (1) HCAP (healthcare-associated pneumonia) Current Visit: Yes Status: Acute Assessment and plan: HCAP: - admitted with Fever, Cough and Leucocytosis. - Bilateral Upper lobe pulmonary infiltrates. Right >Left - On Vanco/Zosyn and Levaquin. ( Day2) - will continue present treatment. - PE was ruled out and first troponin was negative. (2) Melanoma Current Visit: Yes Status: Acute Assessment and plan: Recent history of melanoma excision and on Chemotherapy for same. will continue present treatment. Qualifiers: Melanoma location: upper extremity including shoulder Laterality: right Qualified Code(s): C43.61 - Malignant melanoma of right upper limb, including shoulder (3) CAD (coronary artery disease), [place] coronary artery Current Visit: Yes Status: Chronic Assessment and plan: Previous history of coronary stent. Denies chest pain and doing well. First troponin negative. Qualifiers: [place] vs. transplanted heart: [place] heart Associated angina: without angina Qualified Code(s): I25.10 - Atherosclerotic heart disease of [place] coronary artery without angina pectoris (4) Hypertension Current Visit: Yes Status: Chronic Assessment and plan: In view of underlying sepsis, will hold all antiHTN medications. ( one reading of blood pressure was 102/66) close observation. Qualifiers: Hypertension type: unspecified secondary hypertension Qualified Code(s): I15.9 - Secondary hypertension, unspecified; I15 - Secondary hypertension (5) DVT prophylaxis Current Visit: Yes Status: Acute Assessment and plan: SCD - Subjective Interval history: patient seen and examined. still having warm extremities. has occasional cough but no sputum. - Constitutional Vitals: Temp Pulse Resp BP Pulse Ox 98.5 F 90 19 102/66 94 L 04/02/16 07:00 04/02/16 07:00 04/02/16 07:00 04/02/16 07:00 04/02/16 07:00 General appearance: Present: cooperative, A&O X 3, obese, severe distress, answers questions appropriately - Head Head exam: Present: atraumatic, normocephalic - Eye Eye exam: Present: PERRL, conjuntiva pink, sclera anicteric Pupils: Present: PERRL - Neck Neck exam general surgery: Present: supple, trachea midline. Absent: lymphadenopathy - Respiratory Respiratory exam: Present: CTAB. Absent: accessory muscle use, rales, rhonchi, wheezes - Cardiovascular Cardiovascular exam: Present: RRR, +S1, +S2. Absent: diastolic murmur, gallop, rubs, systolic murmur - GI/Abdominal GI/Abdominal exam: Present: normal bowel sounds, soft, no peritoneal signs. Absent: distended, tenderness - Extremities Exam Extremities exam: Present: warm, radial pulses palpable and symetrical. Absent : calf tenderness, cyanotic, pedal edema - Neurological Exam Neurological exam: Present: CN II-XII intact, oriented X3, no focal deficits. Absent: pronater drift, facial droop, speech deficit - Skin Skin exam: Present: dry, intact Internal Medicine: Result - Labs CBC & Chem 7: 04/03/16 05:16 04/03/16 05:16 Labs: Short CBC 04/02/16 Range/Units 03:05 WBC 13.4 H (4.3-11.1) K/mcL Hgb 12.8 L D (12.9-16.9) g/dL Hct 37.4 L (37.5-50.1) % Plt Count 283 (140-400) K/mcL BMP 04/02/16 03:05 Sodium 127 L Potassium 4.7 H Chloride 101 Carbon Dioxide 18 L BUN 10 Creatinine 0.96 Glucose 102 H Calcium 8.6 Cardiac Enzymes 04/01/16 04/02/16 Range/Units 21:54 03:05 Troponin I 0.01 0.01 (0-0.03) ng/mL Urine 04/01/16 Range/Units 18:45 Urine Color Yellow (Yellow) Urine Clarity Clear (Clear) Urine pH 5.5 (5.0-8.0) pH Units Ur Specific [place] > 1.030 H (1.010-1.025) Urine Protein Negative (Neg-Trace) mg/dL Urine Glucose (UA) Normal (Normal) mg/dL noted that sputum sample was not appropriate for culture. - ABG Interpretation ABG results: PT/INR, D-dimer PT 15.4 Seconds (9.4-12.1) H 04/01/16 16:08 Consult Discharge Plan - Plan Referrals: Yash Thomas MD [Primary Care Provider] -
[2016-04-02] MEDS: Levofloxacin 750 MG/150 ML 750 MG/150 ML BAG IVPB SCH (09:20)
[2016-04-02] MEDS: Piperacillin/Tazobactam 3.375 GM in D5% in Water (Mini-Bag+) 100 ML IVPB SCH ×4 (09:20→23:32)
[2016-04-02] MEDS: Lactobacillus 1 EACH CAP.SPRINK PO SCH (09:22)
[2016-04-02] MEDS: Levothyroxine 25 MCG TABLET PO SCH (09:24)
[2016-04-02] MEDS: Famotidine 20 MG TABLET PO SCH ×2 (09:24→20:09)
[2016-04-02] MEDS: predniSONE 20 MG TABLET PO SCH (09:24)
[2016-04-02] MEDS: Melatonin 3 MG TABLET PO SCH (20:07)
[2016-04-02] MEDS: Temazepam 15 MG CAPSULE PO SCH (20:09)
[2016-04-03] MEDS: 0.9 % Sodium Chloride 1,000 ML IVC SCH ×2 (01:02→12:58)
[2016-04-03] MEDS: Vancomycin 2,000 MG in D5% in Water 500 ML IVPB SCH (04:17)
[2016-04-03] MEDS: Ipratropium/Albuterol Neb 3 ML IH SCH ×4 (04:24→22:36)
[2016-04-03 05:30] LABS: Basophils % 0.1 %; Eosinophils % 0.2 %; Hematocrit 35.5 % (37.5-50.1); Hemoglobin 11.9 g/dL (12.9-16.9); Immature Granulocytes % 1.4 % (0-4); Lymphocytes # 1.8 K/mcL (0.6-4.6); Lymphocytes % 9.1 %; Mean Corpuscular HGB Conc 33.5 g/dL (31.6-35.5); Mean Corpuscular Hemoglobin 30.5 pg (28.0-33.3); Mean Platelet Volume 9.4 fL (9.4-12.4); Monocytes # 0.9 K/mcL (0.0-1.3); Monocytes % 4.8 %; Neutrophils # 16.3 K/mcL (1.6-8.9); Platelet Count 267 K/mcL (140-400); Segmented Neutrophils % 84.4 %
[2016-04-03 05:45] LABS: Alanine Aminotransferase 13 Units/L (0-55); Albumin 2.8 g/dL (3.5-5.0); Albumin/Globulin Ratio 0.7 (1.1-2.2); Alkaline Phosphatase 94 Units/L (38-126); Aspartate Amino Transferase 24 Units/L (5-34); BUN/Creatinine Ratio 14 (6-26); Bilirubin,Total 0.6 mg/dL (0.2-1.2); Blood Urea Nitrogen 14 mg/dL (8-26); Calcium 8.9 mg/dL (8.6-10.8); Carbon Dioxide 18 mEq/L (19-29); Chloride 114 mEq/L (98-109); Globulin 4.2 g/dL (2.4-3.5); Glucose 250 mg/dL (70-99); Osmolality,Calculated 299 (280-300); eGFR For African Americans > 60 (> 60); eGFR For Non-African Americans > 60 (> 60)
[2016-04-03 05:46] LABS: Sodium 140 mEq/L (136-145)
[2016-04-03] MEDS: Lactobacillus 1 EACH CAP.SPRINK PO SCH (08:46)
[2016-04-03] MEDS: Benzonatate 100 MG CAPSULE PO PRN ×2 (08:46→16:30)
[2016-04-03] MEDS: Famotidine 20 MG TABLET PO SCH ×2 (08:47→21:19)
[2016-04-03] MEDS: Levothyroxine 25 MCG TABLET PO SCH (08:47)
[2016-04-03] MEDS: predniSONE 20 MG TABLET PO SCH (08:47)
[2016-04-03] MEDS: Piperacillin/Tazobactam 3.375 GM in D5% in Water (Mini-Bag+) 100 ML IVPB SCH ×2 (08:48→16:18)
[2016-04-03] MEDS: Levofloxacin 750 MG/150 ML 750 MG/150 ML BAG IVPB SCH (08:48)
[2016-04-03] MEDS: Diphenoxylate/Atropine 1 TAB TABLET PO PRN (10:20)
[2016-04-03] MEDS ORDERED: Artificial Tears SOLN 15 ML BOTTLE BOTH EYES PRN (12:14)
--- NOTE | 2016-04-03 12:34 | Internal Med Progress Note ---
Date of Encounter: 04/03/16 Time of Encounter: 12:32 - Assessment and plan (1) HCAP (healthcare-associated pneumonia) Current Visit: Yes Status: Acute Assessment and plan: HCAP: - admitted with Fever, Cough and Leucocytosis. - Bilateral Upper lobe pulmonary infiltrates. Right >Left - On Vanco/Zosyn and Levaquin. ( Day2) - will continue present treatment. - PE was ruled out and first troponin was negative. 04/03/2016. -Blood cultures negative so far. -Sputum culture is not appropriate as sample was rejected. -Clinically patient is much better as compared to the day of admission. -On Vanco/Zosyn and Levaquin ( Day 3) -We will discontinue vancomycin tomorrow if the blood culture is persistently negative. -Noted that WBC count is trending upwards. This is likely secondary to steroids. - (2) Melanoma Current Visit: Yes Status: Acute Assessment and plan: Recent history of melanoma excision and on Chemotherapy for same. will continue present treatment. Qualifiers: Melanoma location: upper extremity including shoulder Laterality: right Qualified Code(s): C43.61 - Malignant melanoma of right upper limb, including shoulder (3) CAD (coronary artery disease), [place] coronary artery Current Visit: Yes Status: Chronic Assessment and plan: Previous history of coronary stent. Denies chest pain and doing well. First troponin negative. Qualifiers: [place] vs. transplanted heart: [place] heart Associated angina: without angina Qualified Code(s): I25.10 - Atherosclerotic heart disease of [place] coronary artery without angina pectoris (4) Hypertension Current Visit: Yes Status: Chronic Assessment and plan: In view of underlying sepsis, will hold all antiHTN medications. ( one reading of blood pressure was 102/66) close observation. 04/03/2016. Noted that blood pressure is within normal limits. Will continue present medication. Qualifiers: Hypertension type: unspecified secondary hypertension Qualified Code(s): I15.9 - Secondary hypertension, unspecified; I15 - Secondary hypertension (5) DVT prophylaxis Current Visit: Yes Status: Acute Assessment and plan: SCD Medical decision making: This patient is a [id number] risk of worsening pneumonia in spite of being on appropriate antibiotics. - Subjective Interval history: patient seen and examined. still having warm extremities. has occasional cough but no sputum. 04/03/2016. Patient is much better as compared to yesterday. Patient's is at bedside. History occasionally coughing but no sputum production. - Constitutional Vitals: Temp Pulse Resp BP Pulse Ox 97.4 F L 102 16 147/80 95 04/03/16 11:00 04/03/16 11:00 04/03/16 11:00 04/03/16 11:00 04/03/16 11:00 General appearance: Present: cooperative, A&O X 3, obese, severe distress, answers questions appropriately - Head Head exam: Present: atraumatic, normocephalic - Eye Eye exam: Present: PERRL, conjuntiva pink, sclera anicteric Pupils: Present: PERRL - Neck Neck exam general surgery: Present: supple, trachea midline. Absent: lymphadenopathy - Respiratory Respiratory exam: Present: CTAB. Absent: accessory muscle use, rales, rhonchi, wheezes - Cardiovascular Cardiovascular exam: Present: RRR, +S1, +S2. Absent: diastolic murmur, gallop, rubs, systolic murmur - GI/Abdominal GI/Abdominal exam: Present: normal bowel sounds, soft, no peritoneal signs. Absent: distended, tenderness - Extremities Exam Extremities exam: Present: warm, radial pulses palpable and symetrical. Absent : calf tenderness, cyanotic, pedal edema - Neurological Exam Neurological exam: Present: CN II-XII intact, oriented X3, no focal deficits. Absent: pronater drift, facial droop, speech deficit - Skin Skin exam: Present: dry, intact Internal Medicine: Result - Labs CBC & Chem 7: 04/03/16 05:16 04/03/16 05:16 Labs: Short CBC 04/03/16 Range/Units 05:16 WBC 19.4 H (4.3-11.1) K/mcL Hgb 11.9 L (12.9-16.9) g/dL Hct 35.5 L (37.5-50.1) % Plt Count 267 (140-400) K/mcL Neutrophils # 16.3 H (1.6-8.9) K/mcL BMP 04/03/16 05:16 Sodium 140 D Potassium 4.0 Chloride 114 H Carbon Dioxide 18 L BUN 14 Creatinine 1.00 Glucose 250 H Calcium 8.9 Liver Function 04/03/16 Range/Units 05:16 Total Bilirubin 0.6 (0.2-1.2) mg/dL AST 24 (5-34) Units/L ALT 13 (0-55) Units/L Alkaline Phosphatase 94 (38-126) Units/L Albumin 2.8 L (3.5-5.0) g/dL - ABG Interpretation ABG results: PT/INR, D-dimer PT 15.4 Seconds (9.4-12.1) H 04/01/16 16:08 - VTE Documentation of Mechanical Device: Intermittent pneumatic compression device Consult Discharge Plan - Plan Referrals: Yash Thomas MD [Primary Care Provider] -
[2016-04-03] MEDS: Bacitracin/PolymyxinB OINT 14.17 GM TUBE TP SCH ×2 (14:43→21:19)
[2016-04-03] MEDS: Melatonin 3 MG TABLET PO SCH (21:18)
[2016-04-03] MEDS: Temazepam 15 MG CAPSULE PO SCH (21:20)
[2016-04-03 23:14] LABS: VBG HCO3 21.7 mEq/L (21-27); VBG PH 7.4 pH Units (7.32-7.42)
[2016-04-04] MEDS: 0.9 % Sodium Chloride 1,000 ML IVC SCH ×2 (00:45→13:09)
[2016-04-04] MEDS: Piperacillin/Tazobactam 3.375 GM in D5% in Water (Mini-Bag+) 100 ML IVPB SCH ×3 (00:57→18:20)
[2016-04-04 03:41] LABS: VBG HCO3 21.4 mEq/L (21-27); VBG PH 7.42 pH Units (7.32-7.42)
[2016-04-04] MEDS: Ipratropium/Albuterol Neb 3 ML IH SCH ×4 (04:11→22:53)
--- NOTE | 2016-04-04 04:50 | Event Note ---
Date of Encounter: 04/03/16 Time of Encounter: 22:00 Likely acute psychotic state in the setting of pneumonia and admission. Concern for hypercarbia. Page received at 9:34pm from nursing stating patient seemed more confused than baseline. Stating his IV was leaking, seeing animal shapes in the towels, and trying to walk off without his IV pole. I arrived shortly thereafter to evaluate patient. He was sitting up, comfortably in bed, watching TV. Patient was not wearing any supplemental O2 at this time. Patient is alert and oriented x 3, no slurred speech, no facial drooping, no motor retardation in upper or lower extremity. Patient's thoughts seems logical and coherent. Mood and affect appropriate. Patient denies any psychiatric history, none seen in documentation. Paged again at 1:24am and 1:43am as patient has been crying, is concerned that he is seeing a towel as a rabbit and the nurse cannot see the same. Nurse states at one time he did not know his birthday or location, within 30mins he had returned to his baseline, was again oriented and more calm. Repeated VBG with concern for hypercarbia in the setting of respiratory failure secondary to pneumonia. VBG showed pCO2 of 35 (low)and pO2 187 (high). Continue to monitor. May consider geodon if patient becomes agitated.
[2016-04-04] MEDS: Vancomycin 2,000 MG in D5% in Water 500 ML IVPB SCH (06:13)
[2016-04-04] MEDS: Famotidine 20 MG TABLET PO SCH ×2 (10:24→21:03)
[2016-04-04] MEDS: Lactobacillus 1 EACH CAP.SPRINK PO SCH (10:24)
[2016-04-04] MEDS: Levothyroxine 25 MCG TABLET PO SCH (10:25)
[2016-04-04] MEDS: predniSONE 20 MG TABLET PO SCH (10:25)
[2016-04-04] MEDS: Levofloxacin 750 MG/150 ML 750 MG/150 ML BAG IVPB SCH (10:26)
[2016-04-04] MEDS: Diphenoxylate/Atropine 1 TAB TABLET PO PRN (10:41)
--- NOTE | 2016-04-04 12:08 | Electrocardiograph Report ---
[facility] Test Date: 2016-04-01 Pat Name: Clarke Hancock Department: [id number] Room: 2NE22 Gender: M Capacity Planner: GARRETT : 1950 Requested By: Flo Coleman Order Number: [id number] Reading MD: Ravinder Ceron DO Measurements Intervals [place] Rate: 104 P: 56 W[place]: 173 QRS: 89 QRSD: 161 T: 22 QT: 400 QTc: 461 Interpretive Statements Sinus tachycardia Right bundle branch block Electronically Signed On 04-04-16 12:07:55 EST by Ravinder Ceron DO
[2016-04-04] MEDS: Bacitracin/PolymyxinB OINT 14.17 GM TUBE TP SCH ×2 (13:07→21:04)
--- NOTE | 2016-04-04 13:26 | Internal Med Progress Note ---
<Dev Oliver - Last Filed: 04/04/16 13:23> Date of Encounter: 04/04/16 Time of Encounter: 01:05 - Assessment and plan (1) HCAP (healthcare-associated pneumonia) Current Visit: Yes Status: Acute Assessment and plan: HCAP: - admitted with Fever, Cough and Leucocytosis. - Bilateral Upper lobe pulmonary infiltrates. Right >Left - On Vanco/Zosyn and Levaquin. (Day 4) - will continue present treatment. - PE was ruled out and first troponin was negative. 04/04/2016. -Blood cultures negative so far. -Sputum culture is not appropriate as sample was rejected. -Clinically patient is much better as compared to the day of admission. -On Vanco/Zosyn and Levaquin (Day 4) -We will discontinue vancomycin tomorrow if the blood culture is persistently negative. -Noted that WBC count is trending upwards. This is likely secondary to steroids. -Patient continuing oxygen saturation at 95-96 on room air, will continue to monitor. Supplemental oxygen as needed, wean as tolerated (2) Melanoma Current Visit: Yes Status: Acute Assessment and plan: Recent history of melanoma excision and on experimental Chemotherapy for same. will continue present treatment as above Qualifiers: Melanoma location: upper extremity including shoulder Laterality: right Qualified Code(s): C43.61 - Malignant melanoma of right upper limb, including shoulder (3) CAD (coronary artery disease), [place] coronary artery Current Visit: Yes Status: Chronic Assessment and plan: Previous history of coronary stent. Denies chest pain and doing well. First troponin negative. Qualifiers: [place] vs. transplanted heart: [place] heart Associated angina: without angina Qualified Code(s): I25.10 - Atherosclerotic heart disease of [place] coronary artery without angina pectoris (4) Hypertension Current Visit: Yes Status: Chronic Assessment and plan: During the course of today, patient has been having increasing blood pressures. He was given 10 mg IV hydralazine, will wait and reevaluate how this affects patient blood pressure. Patient reports that he used to take Benicar and amlodipine. He had previously stopped his medications because he was having consistent hypotension at home. Wait and see how patient hydralazine affects his overall blood pressure, will consider re-adding Benicar in outpatient reevaluate with his PCP at home 04/04/16 In view of underlying sepsis, will hold all antiHTN medications. ( one reading of blood pressure was 102/66) close observation. 04/03/2016 Noted that blood pressure is within normal limits. Will continue present medication. Qualifiers: Hypertension type: unspecified secondary hypertension Qualified Code(s): I15.9 - Secondary hypertension, unspecified; I15 - Secondary hypertension (5) DVT prophylaxis Current Visit: Yes Status: Acute Assessment and plan: EPCDs Medical decision making: This patient is a [id number] risk of worsening pneumonia in spite of being on appropriate antibiotics. - Subjective Interval history: Patient reports that he is doing well overall. He states it has been some improvement shortness of breath, though he is still having a mild cough. He reports that his diarrhea is slightly improved from yesterday, but still persists. He denies chest pain, abdominal pain, denies nausea/vomiting, reports mild fever yesterday afternoon. - Constitutional Vitals: Temp Pulse Resp BP Pulse Ox 97.2 F L 86 18 168/113 96 04/04/16 11:53 04/04/16 11:53 04/04/16 11:53 04/04/16 11:53 04/04/16 11:53 General appearance: Present: cooperative, A&O X 3, obese, severe distress, answers questions appropriately Exam: General: Cooperative, pleasant, no acute distress, alert and oriented 3, answers questions appropriately Head: Normocephalic, atraumatic Eye: Conjunctiva pink, sclera anicteric, EOMI, PERRL Neck: Supple, trachea midline Respiratory: No accessory muscle usage, clear to auscultation bilaterally, no wheezes/rhonchi/rales appreciated Cardiovascular: Regular rate and rhythm, S1 and S2 present, no murmurs/rubs/ gallops/clicks appreciated GI/abdominal: Nondistended, nontender, soft, normal bowel sounds, no peritoneal signs Extremities: No calf tenderness, noncyanotic, no pedal edema appreciated, warm, lower extremity pulses palpable and symmetrical Neurological: Alert and oriented 3, no facial droop, no focal deficits Skin: Dry, intact, normal color Internal Medicine: Result - Labs CBC & Chem 7: 04/03/16 05:16 04/03/16 05:16 - ABG Interpretation ABG results: PT/INR, D-dimer PT 15.4 Seconds (9.4-12.1) H 04/01/16 16:08 - VTE Documentation of Mechanical Device: Intermittent pneumatic compression device Consult Discharge Plan - Plan Referrals: Yash Thomas MD [Primary Care Provider] - 04/14/16 10:00 am <Keagan Iglesias - Last Filed: 04/04/16 18:20> Date of Encounter: 04/04/16 - Assessment and plan (1) HCAP (healthcare-associated pneumonia) Current Visit: Yes Status: Acute (2) Melanoma Current Visit: Yes Status: Acute Qualifiers: Melanoma location: upper extremity including shoulder Laterality: right Qualified Code(s): C43.61 - Malignant melanoma of right upper limb, including shoulder (3) CAD (coronary artery disease), [place] coronary artery Current Visit: Yes Status: Chronic Qualifiers: [place] vs. transplanted heart: [place] heart Associated angina: without angina Qualified Code(s): I25.10 - Atherosclerotic heart disease of [place] coronary artery without angina pectoris (4) Hypertension Current Visit: Yes Status: Chronic Qualifiers: Hypertension type: unspecified secondary hypertension Qualified Code(s): I15.9 - Secondary hypertension, unspecified; I15 - Secondary hypertension (5) DVT prophylaxis Current Visit: Yes Status: Acute - Constitutional Vitals: Temp Pulse Resp BP Pulse Ox 97.4 F L 92 18 172/107 93 L 04/04/16 15:59 04/04/16 15:59 04/04/16 16:06 04/04/16 15:59 04/04/16 16:06 Internal Medicine: Result - Labs CBC & Chem 7: 04/03/16 05:16 04/03/16 05:16 - ABG Interpretation ABG results: PT/INR, D-dimer PT 15.4 Seconds (9.4-12.1) H 04/01/16 16:08 - Attending Attestation I examined this patient and my medical decision-making was reviewed with the CIVIL STRUCTURAL ENGINEER/PA/Advanced Practice Nurse/Resident Physician. I agree with the documented findings, disposition and treatment plan as described except to the extent set forth below.
[2016-04-04] MEDS ORDERED: Vancomycin 500 MG in D5% in Water (Mini-Bag+) 100 ML IVPB ONE (13:41)
[2016-04-04] MEDS: Melatonin 3 MG TABLET PO SCH (21:03)
[2016-04-04] MEDS: Benzonatate 100 MG CAPSULE PO PRN (21:03)
[2016-04-04] MEDS: Temazepam 15 MG CAPSULE PO SCH (21:04)
[2016-04-05] MEDS: 0.9 % Sodium Chloride 1,000 ML IVC SCH (00:11)
[2016-04-05] MEDS: Piperacillin/Tazobactam 3.375 GM in D5% in Water (Mini-Bag+) 100 ML IVPB SCH ×3 (00:12→16:28)
[2016-04-05] MEDS: Ipratropium/Albuterol Neb 3 ML IH SCH (04:13)
[2016-04-05] MEDS ORDERED: Vancomycin 1,250 MG in D5% in Water 250 ML IVPB SCH (05:00)
[2016-04-05 05:16] LABS: Basophils % 0.2 %; Eosinophils % 0.1 %; Hematocrit 37.5 % (37.5-50.1); Hemoglobin 12.6 g/dL (12.9-16.9); Immature Granulocytes % 1.1 % (0-4); Lymphocytes # 2.7 K/mcL (0.6-4.6); Lymphocytes % 16.4 %; Mean Corpuscular HGB Conc 33.6 g/dL (31.6-35.5); Mean Corpuscular Hemoglobin 31.2 pg (28.0-33.3); Mean Corpuscular Volume 92.8 fL (83.0-100.0); Mean Platelet Volume 9.5 fL (9.4-12.4); Monocytes # 1.1 K/mcL (0.0-1.3); Monocytes % 6.5 %; Neutrophils # 12.3 K/mcL (1.6-8.9); Platelet Count 329 K/mcL (140-400); Red Blood Count 4.04 M/mcL (4.19-5.50); Red Cell Distribution Width 13.5 % (11.5-14.5); Segmented Neutrophils % 75.7 %
[2016-04-05 05:24] LABS: VBG HCO3 23.6 mEq/L (21-27); VBG PH 7.39 pH Units (7.32-7.42)
[2016-04-05 05:29] LABS: BUN/Creatinine Ratio 14 (6-26); Blood Urea Nitrogen 12 mg/dL (8-26); Calcium 8.9 mg/dL (8.6-10.8); Carbon Dioxide 23 mEq/L (19-29); Chloride 116 mEq/L (98-109); Glucose 113 mg/dL (70-99); Osmolality,Calculated 305 (280-300); Potassium 3.7 mEq/L (3.5-4.5); Sodium 147 mEq/L (136-145); eGFR For African Americans > 60 (> 60); eGFR For Non-African Americans > 60 (> 60)
[2016-04-05] MEDS ORDERED: Ipratropium/Albuterol Neb 3 ML IH PRN (09:19)
[2016-04-05] MEDS ORDERED: Aminoglycoside Consult 1 EACH MC ONE (09:28)
--- NOTE | 2016-04-05 09:38 | Internal Med Progress Note ---
<Dev Oliver - Last Filed: 04/05/16 10:47> Date of Encounter: 04/05/16 Time of Encounter: 09:00 - Assessment and plan (1) HCAP (healthcare-associated pneumonia) Current Visit: Yes Status: Acute Assessment and plan: HCAP: - admitted with Fever, Cough and Leucocytosis. - Bilateral Upper lobe pulmonary infiltrates. Right >Left - On Vanco/Zosyn and Levaquin. (Day 5) - We will stop vancomycin today - Continue other antibiotics - PE was ruled out and first troponin was negative. 04/04/2016 -Blood cultures negative so far. -Sputum culture is not appropriate as sample was rejected. -Clinically patient is much better as compared to the day of admission. -On Vanco/Zosyn and Levaquin (Day 4) -We will discontinue vancomycin tomorrow if the blood culture is persistently negative. -Noted that WBC count is trending upwards. This is likely secondary to steroids. -Patient continuing oxygen saturation at 95-96 on room air, will continue to monitor. Supplemental oxygen as needed, wean as tolerated 04/05/16 Vancomycin discontinued today Continue Zosyn and Levaquin day 5 White blood cell count continues to trend upward, likely result of steroid usage Patient comfortable without complaints on room air DuoNeb treatments made when necessary per patient comfort (2) Melanoma Current Visit: Yes Status: Acute Assessment and plan: Recent history of melanoma excision and on experimental Chemotherapy for same. will continue present treatment as above Qualifiers: Melanoma location: upper extremity including shoulder Laterality: right Qualified Code(s): C43.61 - Malignant melanoma of right upper limb, including shoulder (3) CAD (coronary artery disease), [place] coronary artery Current Visit: Yes Status: Chronic Assessment and plan: Previous history of coronary stent. Denies chest pain and doing well. First troponin negative. Qualifiers: [place] vs. transplanted heart: [place] heart Associated angina: without angina Qualified Code(s): I25.10 - Atherosclerotic heart disease of [place] coronary artery without angina pectoris (4) Hypertension Current Visit: Yes Status: Chronic Assessment and plan: During the course of today, patient has been having increasing blood pressures. He was given 10 mg IV hydralazine, will wait and reevaluate how this affects patient blood pressure. Patient reports that he used to take Benicar and amlodipine. He had previously stopped his medications because he was having consistent hypotension at home. Wait and see how patient hydralazine affects his overall blood pressure, will consider re-adding Benicar in outpatient reevaluate with his PCP at home Started patient on Cozaar 25 mg yesterday, blood pressure has remained elevated will increase dose of losartan to 50 mg Qualifiers: Hypertension type: unspecified secondary hypertension Qualified Code(s): I15.9 - Secondary hypertension, unspecified; I15 - Secondary hypertension (5) DVT prophylaxis Current Visit: Yes Status: Acute Assessment and plan: EPCDs Medical decision making: This patient is a [id number] risk of worsening pneumonia in spite of being on appropriate antibiotics. - Subjective Interval history: Patient reports feeling well today. He states he continues to be a little bit cold, sustaining several blankets and a warmer, but other than that she is doing well. He denies shortness of breath, states he only has a mild cough and has no complaints of diarrhea today. He denies abdominal pain, denies nausea/ vomiting. - Constitutional Vitals: Temp Pulse Resp BP Pulse Ox 97.5 F L 90 16 161/92 95 04/05/16 07:05 04/05/16 07:05 04/05/16 07:05 04/05/16 07:05 04/05/16 07:05 General appearance: Present: cooperative, A&O X 3, obese, severe distress, answers questions appropriately Exam: General: Cooperative, pleasant, no acute distress, alert and oriented 3, answers questions appropriately Head: Normocephalic, atraumatic Eye: Conjunctiva pink, sclera anicteric, EOMI, PERRL Neck: Supple, trachea midline Respiratory: No accessory muscle usage, slight bibasilar Rales appreciated Cardiovascular: Regular rate and rhythm, S1 and S2 present, no murmurs/rubs/ gallops/clicks appreciated GI/abdominal: Nondistended, nontender, soft, normal bowel sounds, no peritoneal signs Extremities: No calf tenderness, noncyanotic, no pedal edema appreciated, warm, lower extremity pulses palpable and symmetrical Neurological: Alert and oriented 3, no facial droop, no focal deficits Skin: Dry, intact, normal color Internal Medicine: Result - Labs CBC & Chem 7: 04/05/16 04:39 04/05/16 04:39 Labs: Short CBC 04/05/16 Range/Units 04:39 WBC 16.3 H (4.3-11.1) K/mcL Hgb 12.6 L (12.9-16.9) g/dL Hct 37.5 (37.5-50.1) % Plt Count 329 (140-400) K/mcL Neutrophils # 12.3 H (1.6-8.9) K/mcL BMP 04/05/16 04:39 Sodium 147 H Potassium 3.7 Chloride 116 H Carbon Dioxide 23 BUN 12 Creatinine 0.87 Glucose 113 H Calcium 8.9 - ABG Interpretation ABG results: PT/INR, D-dimer PT 15.4 Seconds (9.4-12.1) H 04/01/16 16:08 - VTE Documentation of Mechanical Device: Intermittent pneumatic compression device Consult Discharge Plan - Plan Referrals: Yash Thomas MD [Primary Care Provider] - 04/14/16 10:00 am <Keagan Iglesias P - Last Filed: 04/05/16 16:45> Date of Encounter: 04/05/16 - Assessment and plan (1) HCAP (healthcare-associated pneumonia) Current Visit: Yes Status: Acute (2) Melanoma Current Visit: Yes Status: Acute Qualifiers: Melanoma location: upper extremity including shoulder Laterality: right Qualified Code(s): C43.61 - Malignant melanoma of right upper limb, including shoulder (3) CAD (coronary artery disease), [place] coronary artery Current Visit: Yes Status: Chronic Qualifiers: [place] vs. transplanted heart: [place] heart Associated angina: without angina Qualified Code(s): I25.10 - Atherosclerotic heart disease of [place] coronary artery without angina pectoris (4) Hypertension Current Visit: Yes Status: Chronic Qualifiers: Hypertension type: unspecified secondary hypertension Qualified Code(s): I15.9 - Secondary hypertension, unspecified; I15 - Secondary hypertension (5) DVT prophylaxis Current Visit: Yes Status: Acute - Constitutional Vitals: Temp Pulse Resp BP Pulse Ox 97.4 F L 88 18 172/110 96 04/05/16 15:29 04/05/16 15:29 04/05/16 15:29 04/05/16 15:29 04/05/16 15:29 Internal Medicine: Result - Labs CBC & Chem 7: 04/05/16 04:39 04/05/16 04:39 Labs: Short CBC 04/05/16 Range/Units 04:39 WBC 16.3 H (4.3-11.1) K/mcL Hgb 12.6 L (12.9-16.9) g/dL Hct 37.5 (37.5-50.1) % Plt Count 329 (140-400) K/mcL Neutrophils # 12.3 H (1.6-8.9) K/mcL BMP 04/05/16 04:39 Sodium 147 H Potassium 3.7 Chloride 116 H Carbon Dioxide 23 BUN 12 Creatinine 0.87 Glucose 113 H Calcium 8.9 - ABG Interpretation ABG results: PT/INR, D-dimer PT 15.4 Seconds (9.4-12.1) H 04/01/16 16:08 - Attending Attestation I examined this patient and my medical decision-making was reviewed with the CCNA/PA/Advanced Practice Nurse/Resident Physician. I agree with the documented findings, disposition and treatment plan as described except to the extent set forth below. Likely home tomorrow
[2016-04-05] MEDS: Levothyroxine 25 MCG TABLET PO SCH (09:43)
[2016-04-05] MEDS: Famotidine 20 MG TABLET PO SCH ×2 (09:43→19:56)
[2016-04-05] MEDS: Levofloxacin 750 MG/150 ML 750 MG/150 ML BAG IVPB SCH (09:43)
[2016-04-05] MEDS: Lactobacillus 1 EACH CAP.SPRINK PO SCH (09:43)
[2016-04-05] MEDS: Bacitracin/PolymyxinB OINT 14.17 GM TUBE TP SCH ×2 (09:44→19:57)
[2016-04-05] MEDS: predniSONE 20 MG TABLET PO SCH (09:44)
[2016-04-05] MEDS: Benzonatate 100 MG CAPSULE PO PRN ×3 (10:32→19:56)
[2016-04-05] MEDS: Melatonin 3 MG TABLET PO SCH (19:56)
[2016-04-05] MEDS: Temazepam 15 MG CAPSULE PO SCH (19:57)
[2016-04-06] MEDS ORDERED: *HR* Metoprolol 5 MG/5 ML VIAL IVP ONE (01:20)
[2016-04-06] MEDS: 0.9 % Sodium Chloride 1,000 ML IVC SCH (01:42)
--- NOTE | 2016-04-06 07:08 | Discharge Summary ---
<Dev Oliver - Last Filed: 04/06/16 12:06> Date of Encounter: 04/06/16 Time of Encounter: 08:45 - Discharge Diagnosis (1) HCAP (healthcare-associated pneumonia) Priority: Primary Status: Acute (2) Melanoma Priority: Primary Status: Acute Qualifiers: Melanoma location: upper extremity including shoulder Laterality: right Qualified Code(s): C43.61 - Malignant melanoma of right upper limb, including shoulder (3) CAD (coronary artery disease), [place] coronary artery Priority: Secondary Status: Chronic Qualifiers: [place] vs. transplanted heart: [place] heart Associated angina: without angina Qualified Code(s): I25.10 - Atherosclerotic heart disease of [place] coronary artery without angina pectoris (4) Hypertension Priority: Primary Status: Chronic Qualifiers: Hypertension type: unspecified secondary hypertension Qualified Code(s): I15.9 - Secondary hypertension, unspecified; I15 - Secondary hypertension (5) DVT prophylaxis Priority: Secondary Status: Acute - Discharge Medications Prescriptions: Benzonatate [Tessalon] 200 mg PO TID PRN #30 capsule PRN Reason: Cough Diphenoxylate/Atropine [Lomotil 2.5 mg/0.025 mg] 1 tab PO QID PRN #30 tablet PRN Reason: Diarrhea Levofloxacin 750 mg PO DAILY #3 tablet PredniSONE 40 mg PO DAILY #11 tablet Home Medications: Atorvastatin Calcium [Lipitor] 20 mg PO DAILY 04/01/16 [History] Clopidogrel [Plavix] 75 mg PO DAILY 04/01/16 [History] Fexofenadine HCl 60 mg PO DAILY PRN 04/01/16 [History] Guaifenesin [Mucinex] 600 mg PO BID PRN 04/01/16 [History] Levothyroxine [Synthroid] 25 mcg PO DAILY 04/01/16 [History] Melatonin 5 mg PO HS 04/01/16 [History] Temazepam [Restoril] 15 mg PO HS 04/01/16 [History] Amlodipine [Norvasc] 10 mg PO DAILY tablet 04/06/16 [Rx] Benzonatate [Tessalon] 200 mg PO TID PRN #30 capsule 04/06/16 [Rx] Diphenoxylate/Atropine [Lomotil 2.5 mg/0.025 mg] 1 tab PO QID PRN #30 tablet 01/ 11/17 [Rx] Levofloxacin 750 mg PO DAILY #3 tablet 04/06/16 [Rx] PredniSONE 40 mg PO DAILY #11 tablet 04/06/16 [Rx] Allergies/Adverse Reactions: Allergies No Known Allergies Allergy (Verified 02/15/16 16:32) Date of admission: 04/02/16 08:09 Primary care physician: Yash Thomas MD Discharging clinician: Dev Oliver Anticipated date of discharge: 04/06/16 - Patient Status Disposition: Home, Self-Care Condition: Good Functional capacity at discharge: independent ambulation Overall status at discharge: patient is progressing back to baseline - Discharge Instructions Instructions: Benzonatate (By mouth), Prednisone (By mouth), Levofloxacin (By mouth), Chronic Hypertension (DC), Community-acquired Pneumonia (GEN) Follow Up With: Yash Thomas MD [Primary Care Provider] - 04/14/16 10:00 am Additional Instructions: Monitor blood pressure to 3 times a day at home, record readings and bring to PCP Resume home amlodipine and Benicar per normal routine Take all medications as prescribed, including: Levaquin for additional 3 days, Tessalon Perles as needed for cough additional 9 day prednisone taper, and Lomotil as needed for diarrhea Follow-up with her PCP as scheduled Return to emergency department if worsening shortness of breath, development chest pain, development of fever or chills, or development of lightheadedness or dizziness - Diet and Activity Activity: increase activity as tolerated Diet: advance to your usual diet Interval History: Patient reports doing well today. He states his blood pressure has continually been high. Though he has not been receiving his home dose of amlodipine during this admission so far. He has no complaints of headache, chest pain, shortness of breath, fever/chills, changes in vision. Hospital course: Mr. Hancock is a 65 year old male who presented to [facility] with chief concern: Intractable nausea, vomiting, diarrhea Comorbidities would include: CAD/PTCA stent, hypertension, dyslipidemia, internal hemorrhoids/hematochezia, diverticulosis coli, sleep disorder, hypothyroidism, allergic rhinitis, H/O melanoma s/p excision+adjuvant chemotherapy, osteoarthritis, osteopenia, obesity, former smoker @ Hospital course: Mr. Hancock was originally admitted on 04/01/16 after coming in with intractable nausea, vomiting, diarrhea for about 4 days. He admits to intermittent fevers, chills, cough in the same time period. At admission his found to have a pneumonia and severe sepsis. He has a recent history of chemotherapy for malignant melanoma, and with his immunocompromised state chemotherapy he was treated for healthcare associated pneumonia. He received a total of 6 days of vancomycin, 7 days of Zosyn, and 8 days of Levaquin at discharge. During his time in the hospital, received antibiotics, steroids, breathing treatments, and fluids with improvement in his shortness of breath, cough, and blood pressure. Towards the end of his hospital stay he was beginning to have hypertension and the equivalent of his home anti-hypertensive medications were started. At the time of discharge, his blood pressure has remained stable and he has had several days improvement in his breathing. He is stable for discharge with continuation of his Levaquin, prednisone, and symptomatic control of his nausea and vomiting. @ At time of discharge, patient was clinically improved, hemodynamically stable, progressing to baseline, and agreeable with plan of care. Patient was advised to seek immediate medical attention for any new or worsening symptoms including but not limited to fever, chills, chest pain, chest pressure, dyspnea, cough, abdominal pain, nausea, vomiting, diarrhea, bloody stool, urine and the patient voiced understanding. Patient will follow-up with primary care physician: - Time Spent with Patient Total time spent providing and/or coordinating discharge services: - Constitutional Vitals: Temp Pulse Resp BP Pulse Ox 97.5 F L 73 17 166/97 95 04/05/16 20:00 04/06/16 04:46 04/06/16 04:46 04/06/16 06:08 04/06/16 04:46 General appearance: Present: cooperative, A&O X 3, obese, severe distress, answers questions appropriately Exam: General: Cooperative, pleasant, no acute distress, alert and oriented 3, answers questions appropriately Head: Normocephalic, atraumatic Eye: Conjunctiva pink, sclera anicteric, EOMI, PERRL Neck: Supple, trachea midline Respiratory: No accessory muscle usage, good air movement, rales auscultated b/ l L>R Cardiovascular: Regular rate and rhythm, S1 and S2 present, no murmurs/rubs/ gallops/clicks appreciated GI/abdominal: Nondistended, nontender, soft, normal bowel sounds, no peritoneal signs Extremities: No calf tenderness, noncyanotic, no pedal edema appreciated, warm, lower extremity pulses palpable and symmetrical Neurological: Alert and oriented 3, no facial droop, no focal deficits Skin: Dry, intact, normal color - VTE Documentation of Mechanical Device: Intermittent pneumatic compression device <Keagan Iglesias - Last Filed: 04/06/16 18:23> Date of Encounter: 04/06/16 - Discharge Diagnosis (1) HCAP (healthcare-associated pneumonia) Status: Acute (2) Melanoma Status: Acute Qualifiers: Melanoma location: upper extremity including shoulder Laterality: right Qualified Code(s): C43.61 - Malignant melanoma of right upper limb, including shoulder (3) CAD (coronary artery disease), [place] coronary artery Status: Chronic Qualifiers: [place] vs. transplanted heart: [place] heart Associated angina: without angina Qualified Code(s): I25.10 - Atherosclerotic heart disease of [place] coronary artery without angina pectoris (4) Hypertension Status: Chronic Qualifiers: Hypertension type: unspecified secondary hypertension Qualified Code(s): I15.9 - Secondary hypertension, unspecified; I15 - Secondary hypertension (5) DVT prophylaxis Status: Acute Date of admission: 04/02/16 08:09 Primary care physician: Yash Thomas MD Hospital course: Mr. Hancock is a 65 year old male - Time Spent with Patient Total time spent providing and/or coordinating discharge services: - Constitutional Vitals: Temp Pulse Resp BP Pulse Ox 97.5 F L 73 16 182/99 94 L 04/06/16 11:51 04/06/16 11:51 04/06/16 11:51 04/06/16 11:51 04/06/16 11:51 - Attending Attestation I examined this patient and my medical decision-making was reviewed with the PRODUCT BUILDER/PA/Advanced Practice Nurse/Resident Physician. I agree with the documented findings, disposition and treatment plan as described except to the extent set forth below.
[2016-04-06 07:13] LABS: Basophils % 0.2 %; Eosinophils # 0.1 K/mcL (0.0-0.6); Eosinophils % 1.1 %; Hematocrit 38.6 % (37.5-50.1); Hemoglobin 12.9 g/dL (12.9-16.9); Immature Granulocytes % 0.7 % (0-4); Lymphocytes # 3.9 K/mcL (0.6-4.6); Lymphocytes % 30.2 %; Mean Corpuscular HGB Conc 33.4 g/dL (31.6-35.5); Mean Corpuscular Hemoglobin 30.4 pg (28.0-33.3); Monocytes # 1.1 K/mcL (0.0-1.3); Monocytes % 8.8 %; Neutrophils # 7.7 K/mcL (1.6-8.9); Platelet Count 337 K/mcL (140-400); Red Blood Count 4.24 M/mcL (4.19-5.50); Red Cell Distribution Width 13.2 % (11.5-14.5)
[2016-04-06 07:25] LABS: BUN/Creatinine Ratio 18 (6-26); Blood Urea Nitrogen 14 mg/dL (8-26); Calcium 8.8 mg/dL (8.6-10.8); Carbon Dioxide 18 mEq/L (19-29); Chloride 116 mEq/L (98-109); Glucose 90 mg/dL (70-99); Osmolality,Calculated 298 (280-300); Potassium 3.9 mEq/L (3.5-4.5); Sodium 144 mEq/L (136-145); eGFR For African Americans > 60 (> 60); eGFR For Non-African Americans > 60 (> 60)
[2016-04-06] MEDS ORDERED: levoFLOXacin 750 MG TABLET PO SCH (09:00)
[2016-04-06] MEDS: predniSONE 20 MG TABLET PO SCH (09:18)
[2016-04-06] MEDS: Famotidine 20 MG TABLET PO SCH (09:18)
[2016-04-06] MEDS: Levothyroxine 25 MCG TABLET PO SCH (09:18)
[2016-04-06] MEDS: Lactobacillus 1 EACH CAP.SPRINK PO SCH (09:18)
[2016-04-06] MEDS: Bacitracin/PolymyxinB OINT 14.17 GM TUBE TP SCH (09:21)
[2016-04-06] MEDS ORDERED: amLODIPine 5 MG TABLET PO SCH (09:30)
[2016-04-06 11:52] VITALS: BP 182/99
== END 2016-04-06 13:53 | disposition home or self-care (01) | DRG 871 ==
LOC: 2NENU 14:13 → EMEROO 14:13 → 2NENU 18:59
PROVIDERS: ADMIT Internal Medicine; ATTEND Internal Medicine

== ENCOUNTER 2016-04-19 11:17 | Inpatient (IN) ==
[2016-04-19] MEDS ORDERED: Piperacillin/Tazobactam 3.375 GM in D5% in Water (Mini-Bag+) 100 ML IVPB ONE (12:27)
[2016-04-19] MEDS ORDERED: Vancomycin 1,250 MG in D5% in Water 250 ML IVPB ONE (12:27)
[2016-04-19] MEDS ORDERED: Levofloxacin 750 MG/150 ML 750 MG/150 ML BAG IVPB ONE (12:27)
--- NOTE | 2016-04-19 12:33 | Emergency Department Note ---
Disposition Clinical Impression: Pneumonia Qualifiers: Pneumonia type: due to unspecified organism Laterality: unspecified laterality Lung location: unspecified part of lung Qualified Code(s): J18.9 - Pneumonia, unspecified organism Sepsis Qualifiers: Sepsis type: sepsis due to unspecified organism Qualified Code(s): A41.9 - Sepsis, unspecified organism Disposition: Admitted As Inpatient Condition: Fair Time of Disposition: 16:42 SOB HPI - General Chief Complaint: ED Fever Stated Complaint: fever, cough, tired Time Seen by Provider: 04/19/16 12:18 Source: patient, family Mode of arrival: private vehicle Limitations: no limitations Nursing Notes Reviewed: Yes Vital Signs Reviewed: Yes - History of Present Illness Pt Subjective Complaint: shortness of breath, cough Onset (ago): day(s) (This is the third day) Context: recent illness (Was recently admitted to the hospital for pneumonia and sepsis. Has been out of the hospital for over a week and has been doing very very well at home. Family members and patient report that he was fully back to baseline until 3 days ago.) Severity: severe Consistency/Duration: constant Improves with: nothing Worsens with: exertion Associated symptoms: Reports: fever (Temperature was 102 yesterday), sputum production, nausea/vomiting (With eating) Treatment prior to arrival: other (Patient was at the private physician office before coming to the emergency department and was noted to be hypotensive.) Cough present: Yes Cough Frequency: Persistent Sputum production: Yes - Related Data Home Medications Medication Instructions Recorded Confirmed Atorvastatin Calcium [Lipitor] 20 mg PO DAILY 04/01/16 04/19/16 Clopidogrel [Plavix] 75 mg PO DAILY 04/01/16 04/19/16 Fexofenadine HCl 60 mg PO DAILY PRN 04/01/16 04/19/16 Guaifenesin [Mucinex] 600 mg PO BID PRN 04/01/16 04/19/16 Levothyroxine [Synthroid] 25 mcg PO DAILY 04/01/16 04/19/16 Melatonin 5 mg PO HS 04/01/16 04/19/16 Temazepam [Restoril] 15 mg PO HS 04/01/16 04/19/16 Amlodipine [Norvasc] 5 mg PO DAILY 04/19/16 04/19/16 Olmesartan Medoxomil [Benicar] 40 mg PO DAILY 04/19/16 04/19/16 Previous Rx's Medication Instructions Recorded Benzonatate [Tessalon] 200 mg PO TID PRN #30 capsule 04/06/16 Allergies Allergy/AdvReac Type Severity Reaction Status Date / Time No Known Allergies Allergy Verified 02/15/16 16:32 All systems ED: reviewed and negative except as stated. Constitutional: Reports: fever, chills ENT ED: Reports: throat pain, congestion. Denies: ear pain Cardiovascular: Reports: chest pain, dyspnea on exertion Respiratory: Reports: cough, dyspnea Gastrointestinal: Reports: abdominal pain, nausea, vomiting. Denies: diarrhea Integumentary: Denies: rash Neurological: Reports: weakness (Generalized). Denies: headache Past Medical History - Past Medical History Attestation: Yes The following information was validated with the patient. Source: patient, old records reviewed, obtained from family, nursing notes reviewed Medical history: Reports: arthritis, cancer, coronary artery disease, GI bleed, hyperlipidemia, hypertension, osteoporosis, peripheral artery disease, thyroid disease, other Surgical history: Reports: angioplasty/stent, other (Colonoscopy. EGD.) Psychiatric history: Reports: no psych history - Social History Smoking Status: Former smoker Smokeless Tobacco Status: No Alcohol use: Reports: rarely Drug use: Reports: none Physical Exam - General Limitations: no limitations General appearance: alert, in no apparent distress - Head Head exam: atraumatic, normocephalic - Eye Eye exam: Present: normal appearance, PERRL - ENT ENT exam: normal exam, normal oropharynx, mucous membranes dry, normal external ear exam - Neck Neck exam: Present: normal inspection, full ROM. Absent: meningismus - Chest Chest inspection: Present: normal inspection, symmetric chest wall rise. Absent : tenderness - Respiratory Respiratory exam: Present: wheezes (Very mild). Absent: respiratory distress - Cardiovascular Cardiovascular exam: Present: regular rate, normal rhythm, normal heart sounds - Abdominal Exam Abdominal exam: Present: soft, Non-Tender - Extremities Exam Extremities exam: Present: normal inspection, full ROM. Absent: pedal edema - Neurological Exam Neurological exam: Present: alert, oriented X3 - Psychiatric Psychiatric exam: Present: normal affect, normal mood - Skin Skin exam: Present: warm, dry. Absent: rash Course Course Narrative: Patient presents emergency Department with a cough that is productive of sputum as well as some shortness of breath. He documented a 102 temperature at home yesterday. His private physician documented hypotension in the office today prior to arrival. The patient has been on immunomodulators therapy for melanoma (although he has not had treatment for 9 weeks). The patient was just in the hospital for what they felt was a hospital-acquired pneumonia with sepsis. He is fully recovered until 3 days ago when his new symptoms started. Here in the department he is afebrile and although his blood pressures a little bit low, his systolic is still over 100. He is currently on Cipro outpatient for a reported UTI. I am very concerned for recurrence of pneumonia in a patient who has the potential for significant immunocompromised patient and am worried about early sepsis given the high fevers and documented hypotension in the office despite the fact his vitals are good here. I am going to initiate a sepsis workup including antibiotic coverage and fluids. Disposition will be based on diagnostic results and reevaluation. - Reevaluation(s) Reevaluation #1: Patient continues to do well. Heart rate and blood pressure are fine at this point. We still do not see any fevers. Nonetheless this patient has had such a papo course over the past couple weeks and is at such a risk for sepsis and in fact given the high temperature and low blood pressure documented within the past 24 hours and my concern about source of infection in the Lungs, this patient meet sepsis criteria. He needs to be admitted. I have spoken with the hospitalist and she has accepted him for admission. Time: 15:32 - Consultations Consultation #1: Dr. Rice, hospitalist - I spoke with the hospitalist about the patient presentation and she has accepted him for admission. Time: 15:33 Vital Signs Temperature 99.2 F 04/19/16 11:20 Pulse Rate 76 04/19/16 11:20 Respiratory Rate 16 04/19/16 11:20 Blood Pressure 80/55 04/19/16 11:20 O2 Sat by Pulse Oximetry 91 L 04/19/16 11:20 Temperature 99.2 F 04/19/16 11:20 Pulse Rate 84 04/19/16 14:49 Respiratory Rate 16 04/19/16 16:19 Blood Pressure 124/68 04/19/16 16:19 O2 Sat by Pulse Oximetry 99 04/19/16 14:49 Oxygen Delivery Oxygen Delivery Room Air Shortness of Breath/Dyspnea - Lab Data Result diagrams: 04/19/16 14:12 04/19/16 11:46 Lab Results 04/19/16 04/19/16 04/19/16 Range/Units 11:46 11:46 11:46 WBC (4.3-11.1) K/mcL RBC (4.19-5.50) M/mcL Hgb (12.9-16.9) g/dL Hct (37.5-50.1) % MCV (83.0-100.0) fL MCH (28.0-33.3) pg MCHC (31.6-35.5) g/dL RDW (11.5-14.5) % Plt Count (140-400) K/mcL MPV (9.4-12.4) fL Immature Gran % (0-4) % Seg Neutrophils % % Lymphocytes % % Monocytes % % Eosinophils % % Basophils % % Neutrophils # (1.6-8.9) K/mcL Lymphocytes # (0.6-4.6) K/mcL Monocytes # (0.0-1.3) K/mcL Eosinophils # (0.0-0.6) K/mcL Basophils # (0.0-0.2) K/mcL Immature Plt Fraction (1.1-6.1) % PT 13.6 H (9.4-12.1) Seconds INR 1.3 APTT 21.5 L (26.0-36.0) Seconds ABG pH (7.32-7.45) pH Units ABG pCO2 (35-45) mmHg ABG pO2 (85-104) mmHg ABG HCO3 (21-27) mEQ/L ABG Total CO2 (20-26) mEq/L ABG O2 Saturation (95-98) % ABG Base Excess (-2.0 to 3.0) mEq/L Blood Gas Modality Inspired O2 % Sodium 134 L (136-145) mEq/L Potassium 4.1 (3.5-4.5) mEq/L Chloride 99 (98-109) mEq/L Carbon Dioxide 26 (19-29) mEq/L BUN 16 (8-26) mg/dL Creatinine 1.42 H (0.72-1.25) mg/dL Est GFR ( Amer) > 60 (> 60) Est GFR (Non-Af Amer) 50 L (> 60) BUN/Creatinine Ratio 11 (6-26) Glucose 145 H (70-99) mg/dL Calculated Osmolality 282 (280-300) Lactic Acid 1.3 (0.5-2.2) mmol/L Calcium 8.8 (8.6-10.8) mg/dL Phosphorus 3.7 (2.3-4.7) mg/dL Magnesium 1.7 (1.6-2.6) mg/dL Total Bilirubin 1.1 (0.2-1.2) mg/dL Direct Bilirubin 0.4 (0.0-0.5) mg/dL Indirect Bilirubin 0.7 (0.0-1.2) mg/dL AST 18 (5-34) Units/L ALT 20 (0-55) Units/L Alkaline Phosphatase 85 (38-126) Units/L Troponin I (0-0.03) ng/mL Serum Total Protein 6.3 (6.0-8.3) g/dL Albumin 2.8 L (3.5-5.0) g/dL Globulin 3.5 (2.4-3.5) g/dL Albumin/Globulin Ratio 0.8 L (1.1-2.2) Urine Color (Yellow) Urine Clarity (Clear) Urine pH (5.0-8.0) pH Units Ur Specific [place] (1.010-1.025) Urine Protein (Neg-Trace) mg/dL Urine Glucose (UA) (Normal) mg/dL Urine Ketones (Negative) mg/dL Urine Blood (Negative) Urine Nitrite (Negative) Urine Bilirubin (Negative) Urine Urobilinogen (Normal) mg/dL Ur Leukocyte Esterase (Negative) Urine Microscopic RBC (0-3) per hpf Urine Microscopic WBC (0-3) per hpf Ur Squamous Epith Cells (None-Few) per lpf Urine Bacteria (None-Few) per hpf Hyaline Casts (None-Few) per lpf Ur Culture Indicated? (NO) Specimen Rejected 04/19/16 04/19/16 04/19/16 Range/Units 11:46 11:46 12:54 WBC (4.3-11.1) K/mcL RBC (4.19-5.50) M/mcL Hgb (12.9-16.9) g/dL Hct (37.5-50.1) % MCV (83.0-100.0) fL MCH (28.0-33.3) pg MCHC (31.6-35.5) g/dL RDW (11.5-14.5) % Plt Count (140-400) K/mcL MPV (9.4-12.4) fL Immature Gran % (0-4) % Seg Neutrophils % % Lymphocytes % % Monocytes % % Eosinophils % % Basophils % % Neutrophils # (1.6-8.9) K/mcL Lymphocytes # (0.6-4.6) K/mcL Monocytes # (0.0-1.3) K/mcL Eosinophils # (0.0-0.6) K/mcL Basophils # (0.0-0.2) K/mcL Immature Plt Fraction (1.1-6.1) % PT (9.4-12.1) Seconds INR APTT (26.0-36.0) Seconds ABG pH 7.41 (7.32-7.45) pH Units ABG pCO2 46 H (35-45) mmHg ABG pO2 80 L (85-104) mmHg ABG HCO3 29.2 H (21-27) mEQ/L ABG Total CO2 30.6 H (20-26) mEq/L ABG O2 Saturation 96 (95-98) % ABG Base Excess 3.9 H (-2.0 to 3.0) mEq/L Blood Gas Modality [place] Inspired O2 28 % Sodium (136-145) mEq/L Potassium (3.5-4.5) mEq/L Chloride (98-109) mEq/L Carbon Dioxide (19-29) mEq/L BUN (8-26) mg/dL Creatinine (0.72-1.25) mg/dL Est GFR ( Amer) (> 60) Est GFR (Non-Af Amer) (> 60) BUN/Creatinine Ratio (6-26) Glucose (70-99) mg/dL Calculated Osmolality (280-300) Lactic Acid (0.5-2.2) mmol/L Calcium (8.6-10.8) mg/dL Phosphorus (2.3-4.7) mg/dL Magnesium (1.6-2.6) mg/dL Total Bilirubin (0.2-1.2) mg/dL Direct Bilirubin (0.0-0.5) mg/dL Indirect Bilirubin (0.0-1.2) mg/dL AST (5-34) Units/L ALT (0-55) Units/L Alkaline Phosphatase (38-126) Units/L Troponin I 0.01 (0-0.03) ng/mL Serum Total Protein (6.0-8.3) g/dL Albumin (3.5-5.0) g/dL Globulin (2.4-3.5) g/dL Albumin/Globulin Ratio (1.1-2.2) Urine Color (Yellow) Urine Clarity (Clear) Urine pH (5.0-8.0) pH Units Ur Specific [place] (1.010-1.025) Urine Protein (Neg-Trace) mg/dL Urine Glucose (UA) (Normal) mg/dL Urine Ketones (Negative) mg/dL Urine Blood (Negative) Urine Nitrite (Negative) Urine Bilirubin (Negative) Urine Urobilinogen (Normal) mg/dL Ur Leukocyte Esterase (Negative) Urine Microscopic RBC (0-3) per hpf Urine Microscopic WBC (0-3) per hpf Ur Squamous Epith Cells (None-Few) per lpf Urine Bacteria (None-Few) per hpf Hyaline Casts (None-Few) per lpf Ur Culture Indicated? (NO) Specimen Rejected MCV Delta 04/19/16 04/19/16 04/19/16 Range/Units 13:00 13:36 14:12 WBC 10.2 (4.3-11.1) K/mcL RBC 3.73 L (4.19-5.50) M/mcL Hgb 11.5 L (12.9-16.9) g/dL Hct 35.6 L (37.5-50.1) % MCV 95.4 (83.0-100.0) fL MCH 30.8 (28.0-33.3) pg MCHC 32.3 (31.6-35.5) g/dL RDW 13.4 (11.5-14.5) % Plt Count 207 (140-400) K/mcL MPV 9.5 (9.4-12.4) fL Immature Gran % 0.4 (0-4) % Seg Neutrophils % 58.7 % Lymphocytes % 22.3 % Monocytes % 11.2 % Eosinophils % 6.7 % Basophils % 0.7 % Neutrophils # 6.0 (1.6-8.9) K/mcL Lymphocytes # 2.3 (0.6-4.6) K/mcL Monocytes # 1.1 (0.0-1.3) K/mcL Eosinophils # 0.7 H (0.0-0.6) K/mcL Basophils # 0.1 (0.0-0.2) K/mcL Immature Plt Fraction 2.5 (1.1-6.1) % PT (9.4-12.1) Seconds INR APTT (26.0-36.0) Seconds ABG pH (7.32-7.45) pH Units ABG pCO2 (35-45) mmHg ABG pO2 (85-104) mmHg ABG HCO3 (21-27) mEQ/L ABG Total CO2 (20-26) mEq/L ABG O2 Saturation (95-98) % ABG Base Excess (-2.0 to 3.0) mEq/L Blood Gas Modality Inspired O2 % Sodium (136-145) mEq/L Potassium (3.5-4.5) mEq/L Chloride (98-109) mEq/L Carbon Dioxide (19-29) mEq/L BUN (8-26) mg/dL Creatinine (0.72-1.25) mg/dL Est GFR ( Amer) (> 60) Est GFR (Non-Af Amer) (> 60) BUN/Creatinine Ratio (6-26) Glucose (70-99) mg/dL Calculated Osmolality (280-300) Lactic Acid 1.5 (0.5-2.2) mmol/L Calcium (8.6-10.8) mg/dL Phosphorus (2.3-4.7) mg/dL Magnesium (1.6-2.6) mg/dL Total Bilirubin (0.2-1.2) mg/dL Direct Bilirubin (0.0-0.5) mg/dL Indirect Bilirubin (0.0-1.2) mg/dL AST (5-34) Units/L ALT (0-55) Units/L Alkaline Phosphatase (38-126) Units/L Troponin I (0-0.03) ng/mL Serum Total Protein (6.0-8.3) g/dL Albumin (3.5-5.0) g/dL Globulin (2.4-3.5) g/dL Albumin/Globulin Ratio (1.1-2.2) Urine Color Yellow (Yellow) Urine Clarity Clear (Clear) Urine pH 6.0 (5.0-8.0) pH Units Ur Specific Howard 1.015 (1.010-1.025) Urine Protein Negative (Neg-Trace) mg/dL Urine Glucose (UA) Normal (Normal) mg/dL Urine Ketones Negative (Negative) mg/dL Urine Blood Small H (Negative) Urine Nitrite Negative (Negative) Urine Bilirubin Negative (Negative) Urine Urobilinogen Normal (Normal) mg/dL Ur Leukocyte Esterase Negative (Negative) Urine Microscopic RBC 5-15 H (0-3) per hpf Urine Microscopic WBC 3-5 H (0-3) per hpf Ur Squamous Epith Cells Many H (None-Few) per lpf Urine Bacteria None Seen (None-Few) per hpf Hyaline Casts None Seen (None-Few) per lpf Ur Culture Indicated? NO (NO) Specimen Rejected
[2016-04-19] MEDS: 0.9 % Sodium Chloride 1,000 ML IVC SCH ×4 (12:42→18:02)
[2016-04-19 12:43] LABS: INR 1.3; Prothrombin Time 13.6 Seconds (9.4-12.1)
[2016-04-19 12:46] LABS: Activated Partial Thrombo Time 21.5 Seconds (26.0-36.0)
[2016-04-19 12:52] LABS: Alanine Aminotransferase 20 Units/L (0-55); Albumin 2.8 g/dL (3.5-5.0); Albumin/Globulin Ratio 0.8 (1.1-2.2); Alkaline Phosphatase 85 Units/L (38-126); Aspartate Amino Transferase 18 Units/L (5-34); BUN/Creatinine Ratio 11 (6-26); Bilirubin,Direct 0.4 mg/dL (0.0-0.5); Bilirubin,Indirect 0.7 mg/dL (0.0-1.2); Bilirubin,Total 1.1 mg/dL (0.2-1.2); Blood Urea Nitrogen 16 mg/dL (8-26); Calcium 8.8 mg/dL (8.6-10.8); Carbon Dioxide 26 mEq/L (19-29); Chloride 99 mEq/L (98-109); Globulin 3.5 g/dL (2.4-3.5); Glucose 145 mg/dL (70-99); Magnesium 1.7 mg/dL (1.6-2.6); Osmolality,Calculated 282 (280-300); Phosphorous 3.7 mg/dL (2.3-4.7); Potassium 4.1 mEq/L (3.5-4.5); Sodium 134 mEq/L (136-145); Total Protein 6.3 g/dL (6.0-8.3); eGFR For African Americans > 60 (> 60); eGFR For Non-African Americans 50 (> 60)
[2016-04-19 13:00] LABS: ABG Base Excess 3.9 mEq/L (-2.0 to 3.0); ABG HCO3 29.2 mEQ/L (21-27); ABG Oxygen Saturation 96 % (95-98); ABG PCO2 46 mmHg (35-45); ABG PH 7.41 pH Units (7.32-7.45); ABG PO2 80 mmHg (85-104); ABG TCO2 30.6 mEq/L (20-26)
[2016-04-19 13:01] LABS: Blood Gas FiO2 28 %
[2016-04-19 13:48] LABS: Bilirubin,Urine Negative (Negative); Blood,Urine Small (Negative); Clarity,Urine Clear (Clear); Color,Urine Yellow (Yellow); Glucose,Urine (UA) Normal (Normal); Ketones,Urine Negative (Negative); Leukocyte Esterase,Urine Negative (Negative); Nitrite,Urine Negative (Negative); Protein,Urine Negative (Neg-Trace); Specific Gravity,Urine 1.015 (1.010-1.025); Urobilinogen,Urine Normal (Normal)
[2016-04-19 13:51] LABS: Bacteria,Urine None Seen per hpf (None-Few); Hyaline Casts,Urine None Seen per lpf (None-Few); Squamous Epithelial Cell,Urine Many per lpf (None-Few)
[2016-04-19 14:18] LABS: Basophils # 0.1 K/mcL (0.0-0.2); Basophils % 0.7 %; Eosinophils # 0.7 K/mcL (0.0-0.6); Eosinophils % 6.7 %; Hematocrit 35.6 % (37.5-50.1); Hemoglobin 11.5 g/dL (12.9-16.9); Immature Granulocytes % 0.4 % (0-4); Immature Platelets 2.5 % (1.1-6.1); Lymphocytes # 2.3 K/mcL (0.6-4.6); Lymphocytes % 22.3 %; Mean Corpuscular HGB Conc 32.3 g/dL (31.6-35.5); Mean Corpuscular Hemoglobin 30.8 pg (28.0-33.3); Mean Corpuscular Volume 95.4 fL (83.0-100.0); Mean Platelet Volume 9.5 fL (9.4-12.4); Monocytes # 1.1 K/mcL (0.0-1.3); Monocytes % 11.2 %; Platelet Count 207 K/mcL (140-400); Red Blood Count 3.73 M/mcL (4.19-5.50); Red Cell Distribution Width 13.4 % (11.5-14.5); Segmented Neutrophils % 58.7 %
[2016-04-19] MEDS ORDERED: Acetaminophen 325 MG TABLET PO PRN (17:18)
[2016-04-19] MEDS ORDERED: Naloxone 0.4 MG/ML INJ IVP PRN (17:18)
[2016-04-19] MEDS ORDERED: Ondansetron 4 MG/2 ML VIAL IVP PRN (17:18)
[2016-04-19] MEDS ORDERED: 0.9 % Sodium Chloride 1,000 ML ONE (17:28)
[2016-04-19] MEDS ORDERED: *HR* Heparin 5,000 UNIT/ML VIAL ONE (17:28)
[2016-04-19] MEDS: *HR* Heparin 5,000 UNIT/ML VIAL SQ SCH ×2 (18:02→18:29)
[2016-04-19] MEDS ORDERED: Albuterol 2.5 MG/3 ML NEBULIZER IH PRN (18:22)
--- NOTE | 2016-04-19 18:41 | Internal Med History&Physical ---
Date of Encounter: 04/19/16 Time of Encounter: 18:00 Assessment and Plan (1) Acute respiratory failure with hypoxia Current visit: Yes Status: Acute 1 she has been experiencing cough with fever and presented to the ER with oxygen saturation of 91% ABG with PO2 80. We will continue with oxygen titrated to maintain SPO2 greater than 90%. Patient has had recent treatment for pneumonia completed antibiotic course as well as steroids has history of melanoma immunotherapy. Chest x-ray was not indicative of pneumonia suspect this may be viral, obtain a flu swab empiric Tamiflu. He does not repeat sepsis criteria however he is high risk , will continue with empiric therapy of antibiotics and obtain chest CT to rule out pneumonia and de-escalate antibiotics once CT resulted. (2) History of malignant melanoma Current visit: No Status: Chronic 1 patient is to follow up with oncology at [facility] for continued treatment (3) NADEEN (acute kidney injury) Current visit: Yes Status: Acute 1 suspect this is prerenal patient's baseline creatinine is less than 1. Patient has had poor oral intake as well as has been taking ARBS. We will hold ARBS for now and give IV fluids overnight. 2 monitor intake and output 3 avoid nephrotoxins no NSAIDS 4 monitor creatinine (4) DVT prophylaxis Current visit: No Status: Acute 1 heparin subcutaneous (5) Hypertension Current visit: Yes Status: Chronic 1 patient is presently hypotensive. We will hold antihypertensives at this time we will give fluid and resume once back to baseline Qualifiers: Hypertension type: essential hypertension Qualified Code(s): I10 - Essential (primary) hypertension Internal Medicine - H&P: HPI Chief complaint: cough, weakness fever Admitted From: Home Plans for Post Hospital Care: Home History of present illness: Mr. Hancock is a 65 year old male with past medical history of hypertension hypothyroid melanoma hyperlipidemia coronary artery disease. The patient has extensive history and has been receiving immunotherapy for melanoma at [facility]. His first treatment began in January where after 2 doses he experienced hypertension as well as elevated temperature the treatments were halted and the symptoms subsided. In March he was admitted to this facility with pneumonia and sepsis and was recently discharged around April 05. He completed his outpatient treatment of antibiotics and steroids and he developed a urinary tract infection and was treated as an outpatient by his PCP with [facility]. Approximately 3 days ago he began to experience symptoms of cough fever fatigue, vomiting and low blood pressure, of which he has not taken his blood pressure medicine for the past 2 days. He had temperature of 102 yesterday and He presented to his PCP today and was noted to have low blood pressure with systolic in the 80s. He became diaphoretic and lightheaded and. Is brought to the ER for evaluation. Upon presentation to the ER he was hypoxic with PO2 91% blood pressure systolic in the 80s heart rate 76 temperature was 99.2. Blood cultures were obtained patient was given a fluid bolus. ABG pH 7.4 PCO2 26 PO2 is 80 bicarbonate 29.2 O2 sat 96%. Lactate was 1.5 white count 10.2 chest x- ray revealed bronchial thickening urinalysis with no presence of UTI. The patient was given antibiotics and due to his history of immunosuppression and recent hx of pneumonnia he was admitted for further workup and evaluation. Presently the patient does not appear to be any respiratory distress. At present time the patient blood pressure is above 100 systolic and he is afebrile. He denies any chest pain or shortness of breath. I reviewed the case with who agrees with plan Past Med Surg Social Fam HX - Past Medical History Medical history: arthritis, cancer, coronary artery disease, GI bleed, hyperlipidemia, hypertension, osteoporosis, peripheral artery disease, thyroid disease, other Psychiatric history: no psych history - Past Surgical History Surgical History: angioplasty/stent, other - Social History Smoking Status: Former smoker Smokeless Tobacco Status: No Alcohol use: rarely Drug use: none - Family History Father Living Status: Hx Family Cardiac Disorders: Yes (PR) Hx Family Respiratory Disorders: No Hx Family Cancer: No Hx Family GI Disorders: No Hx Family Endocrine Disorder: No Hx Family Neuromuscular Disorders: No Hx Family Neurologic Disorders: No Hx Family HEENT Disorders: No Hx Family Autoimmune Disorders: No Mother Living Status: Still Living Hx Family Cardiac Disorders: No Hx Family Respiratory Disorders: No Hx Family Cancer: No Hx Family GI Disorders: No Hx Family Endocrine Disorder: Yes Hx Family Neuromuscular Disorders: No Hx Family Neurologic Disorders: No Hx Family HEENT Disorders: No Hx Family Autoimmune Disorders: No Internal Medicine - H&P: Meds Atorvastatin Calcium [Lipitor] 20 mg PO DAILY 04/01/16 [History] Clopidogrel [Plavix] 75 mg PO DAILY 04/01/16 [History] Fexofenadine HCl 60 mg PO DAILY PRN 04/01/16 [History] Guaifenesin [Mucinex] 600 mg PO BID PRN 04/01/16 [History] Levothyroxine [Synthroid] 25 mcg PO DAILY 04/01/16 [History] Melatonin 5 mg PO HS 04/01/16 [History] Temazepam [Restoril] 15 mg PO HS 04/01/16 [History] Benzonatate [Tessalon] 200 mg PO TID PRN #30 capsule 04/06/16 [Rx] Amlodipine [Norvasc] 5 mg PO DAILY 04/19/16 [History] Ciprofloxacin [Cipro] 500 mg PO BID 04/19/16 [History] Olmesartan Medoxomil [Benicar] 40 mg PO DAILY 04/19/16 [History] Allergies No Known Allergies Allergy (Verified 02/15/16 16:32) All Systems PM: A 10-system review of systems was performed and is negative for pertinent findings except as documented above in the HPI. - Constitutional Constitutional: anorexia, fatigue, fever(s), weakness - Cardiovascular Cardiovascular ROS IM: lightheadedness, no chest pain, no diaphoresis, no dyspnea, no palpitations, no syncope - Respiratory Respiratory: cough, pain with cough - Gastrointestinal Gastrointestinal: vomiting - Musculoskeletal Musculoskeletal ROS IM: no numbness, no tingling - Integumentary Integumentary IM: no rash, no unusual bruising - Neurological Neurological ROS: no confusion, no convulsions, no focal weakness, no numbness, no tingling, no tremor(s) - Constitutional Vitals: Temp Pulse Resp BP Pulse Ox 99.2 F 84 16 124/68 99 04/19/16 11:20 04/19/16 14:49 04/19/16 16:19 04/19/16 16:19 04/19/16 14:49 General appearance: Present: A&O X 3, no acute distress - Head Head exam: Present: atraumatic, normocephalic - Eye Eye exam: Present: PERRL, conjuntiva pink, sclera anicteric Pupils: Present: PERRL - Neck Neck exam general surgery: Present: supple, trachea midline. Absent: lymphadenopathy - Respiratory Respiratory exam: Present: wheezes. Absent: accessory muscle use, rales, rhonchi Additional comments: Crackles in bases bilaterally faint expiratory wheeze - Cardiovascular Cardiovascular exam: Present: RRR, +S1, +S2. Absent: diastolic murmur, gallop, rubs, systolic murmur - GI/Abdominal GI/Abdominal exam: Present: normal bowel sounds, soft, no peritoneal signs. Absent: distended, tenderness - Extremities Exam Extremities exam: Present: warm, radial pulses palpable and symetrical. Absent : calf tenderness, cyanotic, pedal edema - Neurological Exam Neurological exam: Present: CN II-XII intact, oriented X3, no focal deficits. Absent: pronater drift, facial droop, speech deficit - Skin Skin exam: Present: dry, intact Internal Med - H&P Results - Labs CBC & Chem 7: 04/19/16 14:12 04/19/16 11:46 - EKG Data EKG shows normal: sinus rhythm - EKG Data Prior EKG available for review: no - Impressions SR with RBB - Diagnostic Studies Chest x-ray Additional comments: Per radiology read diffuse bronchial wall thickening with no confluent pneumonia
--- NOTE | 2016-04-19 18:42 | Event Note ---
Date of Encounter: 04/19/16 Time of Encounter: 18:34 Patient seen at the bedside I have independently seen and examined this patient I have reviewed his EMR and discussed the plan of care with the patient, his fiance at the bedside and PARTS SALVAGER Sincere Patient with HTN, HLD and Melanoma (on a clinical trial , immunomodulators, since discontinued in January) He has had two episodes of Pneumonia since then. He just competed oral antibiotics, and was in his usual state of health till two days ago when he developed cough, fever and chills, with malaise. Fever was said to be as high as 102. Physical Exam: Afebrile, comfortable on room air, speaks full sentences. BP on presentation was low, now WNL HEENT: Moist oral mucosa, no cyanosis Chest is clear heart sounds S1, S2 only, no m/g/r Abdomen is soft and benign, no pedal edema Labs and Imaging reviewed: NADEEN, no leukocytosis, CXR with bronchial wall thickening Assessment/Plan 1. Viral syndrome: Most likely Influenza, check FLu swab, start enpiric treatment. Supportive care. Although patient is immunosupressed, there is no current evidence of sespsi, he however, remains high risk. His chest symptoms are typical, obtain Chest CT without contrast. he has been started on HCAP antibiotics coverage, de-escalate based on clinical improvement and Chest CT 2. NADEEN: Possibly pre-renal secondary to ATN from hypotension, poor oral intake and continuation of ARBs. Continue IVF hydration, hold ARB and Amlodipine, strict intake and output. Renal USS. Resume other home meds Other details as in PARTS SALVAGER's documentation which I agree with
[2016-04-19] MEDS: Benzonatate 100 MG CAPSULE PO PRN (21:01)
[2016-04-19] MEDS: Oseltamivir Phosphate 30 MG CAPSULE PO SCH (21:02)
[2016-04-19] MEDS: Temazepam 15 MG CAPSULE PO SCH (21:03)
[2016-04-19] MEDS: Ipratropium/Albuterol Neb 3 ML IH SCH (22:57)
[2016-04-20] MEDS ORDERED: Piperacillin/Tazobactam 3.375 GM in D5% in Water (Mini-Bag+) 100 ML IVPB SCH
[2016-04-20] MEDS: Benzonatate 100 MG CAPSULE PO PRN ×3 (02:17→18:14)
[2016-04-20] MEDS: Ipratropium/Albuterol Neb 3 ML IH SCH ×4 (04:47→23:21)
[2016-04-20 05:41] LABS: Basophils % 0.6 %; Eosinophils # 0.6 K/mcL (0.0-0.6); Eosinophils % 7.8 %; Hemoglobin 11.1 g/dL (12.9-16.9); Immature Granulocytes % 0.3 % (0-4); Lymphocytes # 2.5 K/mcL (0.6-4.6); Lymphocytes % 34.5 %; Mean Corpuscular HGB Conc 32.6 g/dL (31.6-35.5); Mean Corpuscular Hemoglobin 30.6 pg (28.0-33.3); Mean Corpuscular Volume 93.7 fL (83.0-100.0); Mean Platelet Volume 9.9 fL (9.4-12.4); Monocytes # 0.8 K/mcL (0.0-1.3); Monocytes % 11.7 %; Neutrophils # 3.2 K/mcL (1.6-8.9); Platelet Count 168 K/mcL (140-400); Red Blood Count 3.63 M/mcL (4.19-5.50); Red Cell Distribution Width 13.4 % (11.5-14.5); Segmented Neutrophils % 45.1 %
[2016-04-20 05:52] LABS: BUN/Creatinine Ratio 10 (6-26); Blood Urea Nitrogen 9 mg/dL (8-26); Carbon Dioxide 21 mEq/L (19-29); Chloride 105 mEq/L (98-109); Glucose 113 mg/dL (70-99); Osmolality,Calculated 281 (280-300); Potassium 3.9 mEq/L (3.5-4.5); Sodium 136 mEq/L (136-145); eGFR For African Americans > 60 (> 60); eGFR For Non-African Americans > 60 (> 60)
[2016-04-20] MEDS: *HR* Heparin 5,000 UNIT/ML VIAL SQ SCH ×2 (06:19→18:14)
[2016-04-20] MEDS: Oseltamivir Phosphate 30 MG CAPSULE PO SCH ×2 (06:29→18:14)
--- NOTE | 2016-04-20 06:52 | Electrocardiograph Report ---
Test Date: 2016-04-19 Pat Name: Clarke Hancock Department: 104 Room: 2A42 Gender: M [employer]: : 1950 Requested By: Martin Srinivasan Order Number: [id number] Reading MD: Silvestre Niño MD Measurements Intervals [place] Rate: 74 P: 53 AL: 163 QRS: 73 QRSD: 150 T: 48 QT: 410 QTc: 437 Interpretive Statements SINUS RHYTHM RIGHT BUNDLE BRANCH BLOCK Electronically Signed On 04-20-16 06:50:23 EST by Silvestre Niño MD
[2016-04-20] MEDS ORDERED: Levofloxacin 750 MG/150 ML 750 MG/150 ML BAG IVPB SCH (09:00)
[2016-04-20] MEDS ORDERED: Vancomycin 1,500 MG in D5% in Water 250 ML IVPB SCH (09:00)
[2016-04-20] MEDS ORDERED: Vancomycin (wt based) 1,000 MG VIAL IVPB SCH (09:00)
[2016-04-20] MEDS ORDERED: Aminoglycoside Consult 1 EACH MC ONE (09:07)
[2016-04-20] MEDS: Levothyroxine 25 MCG TABLET PO SCH (09:31)
[2016-04-20] MEDS: 0.9 % Sodium Chloride 1,000 ML IVC SCH (09:31)
--- NOTE | 2016-04-20 15:17 | Internal Med Progress Note ---
Date of Encounter: 04/20/16 Time of Encounter: 13:00 - Assessment and plan (1) Viral syndrome Current Visit: Yes Status: Acute Assessment and plan: Continue Tamilfu Continue other supportive care No criteria for SIRS or sepsis met at this time Anticipate d/c a.m if patient remains febrile Follow all cultures (2) NADEEN (acute kidney injury) Current Visit: Yes Status: Acute Assessment and plan: Improved D/C IVF Encourage liberal fluid intake (3) Hypertension Current Visit: Yes Status: Chronic Assessment and plan: Meds held du to hypotension with NADEEN on admission D/C IVF today May restart medications if necessary Qualifiers: Hypertension type: essential hypertension Qualified Code(s): I10 - Essential (primary) hypertension (4) Melanoma Current Visit: No Status: Chronic Qualifiers: Melanoma location: upper extremity including shoulder Laterality: right Qualified Code(s): C43.61 - Malignant melanoma of right upper limb, including shoulder (5) CAD (coronary artery disease), [place] coronary artery Current Visit: No Status: Chronic Assessment and plan: Chronic, stable. ARB held due to NADEEN Qualifiers: [place] vs. transplanted heart: [place] heart Associated angina: without angina Qualified Code(s): I25.10 - Atherosclerotic heart disease of [place] coronary artery without angina pectoris (6) Dyslipidemia Current Visit: No Status: Chronic Assessment and plan: Chronic, resume home meds - Subjective Interval history: 65 Y/O M admitted for management of viral syndrome in the background of melanoma and recent immuntherapy Empiric antibiotics had been started on admission His work up has been negative for any source of infection Chest CT rued out a pneumonia, Flu swab is negative He is seen this morning, feeling better, spouse at the bedside His last fever was this morning at ~4a.m, BP remains WNL, no leukocytosis - Constitutional Vitals: Temp Pulse Resp BP Pulse Ox 97.6 F 80 18 121/74 93 L 04/20/16 12:05 04/20/16 12:05 04/20/16 12:05 04/20/16 12:05 04/20/16 12:05 General appearance: Present: A&O X 3, no acute distress - Head Head exam: Present: atraumatic, normocephalic - Eye Eye exam: Present: PERRL, conjuntiva pink, sclera anicteric Pupils: Present: PERRL - Neck Neck exam general surgery: Present: supple, trachea midline. Absent: lymphadenopathy - Respiratory Respiratory exam: Present: CTAB. Absent: accessory muscle use, rales, rhonchi, wheezes - Cardiovascular Cardiovascular exam: Present: RRR, +S1, +S2. Absent: diastolic murmur, gallop, rubs, systolic murmur - GI/Abdominal GI/Abdominal exam: Present: normal bowel sounds, soft, no peritoneal signs. Absent: distended, tenderness - Extremities Exam Extremities exam: Present: warm, radial pulses palpable and symetrical. Absent : calf tenderness, cyanotic, pedal edema - Neurological Exam Neurological exam: Present: CN II-XII intact, oriented X3, no focal deficits. Absent: pronater drift, facial droop, speech deficit - Skin Skin exam: Present: dry Internal Medicine: Result - Labs CBC & Chem 7: 04/20/16 05:24 04/20/16 05:24 Labs: Short CBC 04/20/16 Range/Units 05:24 WBC 7.2 (4.3-11.1) K/mcL Hgb 11.1 L (12.9-16.9) g/dL Hct 34.0 L (37.5-50.1) % Plt Count 168 (140-400) K/mcL Neutrophils # 3.2 (1.6-8.9) K/mcL BMP 04/20/16 05:24 Sodium 136 Potassium 3.9 Chloride 105 Carbon Dioxide 21 BUN 9 Creatinine 0.92 Glucose 113 H Calcium 8.0 L - ABG Interpretation ABG results: ABG ABG pH 7.41 pH Units (7.32-7.45) 04/19/16 12:54 ABG pCO2 46 mmHg (35-45) H 04/19/16 12:54 ABG pO2 80 mmHg (85-104) L 04/19/16 12:54 ABG O2 Saturation 96 % (95-98) 04/19/16 12:54 PT/INR, D-dimer PT 13.6 Seconds (9.4-12.1) H 04/19/16 11:46 - Impressions Impressions Chest CT 04/19/16 18:19 IMPRESSION: The bilateral ground-glass airspace disease has resolved. Mildly prominent mediastinal lymph nodes are unchanged. D/ /19/2016 20:48:27 Carlos Ochoa MD / Marita Sargent Interpreting Provider: Carlos Ochoa MD Consult Discharge Plan - Plan Referrals: Yash Thomas MD [Primary Care Provider] -
[2016-04-20] MEDS: Temazepam 15 MG CAPSULE PO SCH (21:05)
[2016-04-21] MEDS: Ipratropium/Albuterol Neb 3 ML IH SCH ×2 (04:56→11:04)
[2016-04-21 06:06] LABS: Basophils % 0.5 %; Eosinophils # 0.5 K/mcL (0.0-0.6); Eosinophils % 8.3 %; Hematocrit 34.9 % (37.5-50.1); Hemoglobin 11.9 g/dL (12.9-16.9); Immature Granulocytes % 0.3 % (0-4); Lymphocytes # 2.5 K/mcL (0.6-4.6); Lymphocytes % 38.3 %; Mean Corpuscular HGB Conc 34.1 g/dL (31.6-35.5); Mean Corpuscular Hemoglobin 31.1 pg (28.0-33.3); Mean Corpuscular Volume 91.1 fL (83.0-100.0); Mean Platelet Volume 10.1 fL (9.4-12.4); Monocytes # 0.8 K/mcL (0.0-1.3); Monocytes % 11.7 %; Neutrophils # 2.6 K/mcL (1.6-8.9); Platelet Count 191 K/mcL (140-400); Red Blood Count 3.83 M/mcL (4.19-5.50); Red Cell Distribution Width 13.2 % (11.5-14.5); Segmented Neutrophils % 40.9 %
[2016-04-21 06:18] LABS: BUN/Creatinine Ratio 6 (6-26); Blood Urea Nitrogen 5 mg/dL (8-26); Calcium 8.5 mg/dL (8.6-10.8); Carbon Dioxide 20 mEq/L (19-29); Chloride 103 mEq/L (98-109); Glucose 96 mg/dL (70-99); Osmolality,Calculated 275 (280-300); Potassium 3.8 mEq/L (3.5-4.5); Sodium 134 mEq/L (136-145); eGFR For African Americans > 60 (> 60); eGFR For Non-African Americans > 60 (> 60)
[2016-04-21] MEDS: Oseltamivir Phosphate 30 MG CAPSULE PO SCH ×2 (06:35→17:30)
[2016-04-21] MEDS: *HR* Heparin 5,000 UNIT/ML VIAL SQ SCH ×2 (06:35→19:56)
[2016-04-21] MEDS: Benzonatate 100 MG CAPSULE PO PRN ×2 (07:53→14:56)
[2016-04-21] MEDS: Levothyroxine 25 MCG TABLET PO SCH (07:53)
--- NOTE | 2016-04-21 16:18 | Internal Med Progress Note ---
Date of Encounter: 04/21/16 Time of Encounter: 12:35 - Assessment and plan (1) Viral syndrome Current Visit: Yes Status: Acute Assessment and plan: Continue Tamilfu Continue other supportive care No criteria for SIRS or sepsis met at this time Anticipate d/c a.m if patient remains febrile Follow all cultures Incentive spirometry (2) NADEEN (acute kidney injury) Current Visit: Yes Status: Acute Assessment and plan: resolved Encourage liberal fluid intake (3) Hypertension Current Visit: Yes Status: Chronic Assessment and plan: BP is acceptable Meds have been held since admission Continue to hold meds Qualifiers: Hypertension type: essential hypertension Qualified Code(s): I10 - Essential (primary) hypertension (4) Melanoma Current Visit: No Status: Chronic Qualifiers: Melanoma location: upper extremity including shoulder Laterality: right Qualified Code(s): C43.61 - Malignant melanoma of right upper limb, including shoulder (5) CAD (coronary artery disease), [place] coronary artery Current Visit: No Status: Chronic Assessment and plan: Chronic, stable. ARB held due to NADEEN. Continue Plavix, ASA, Statin Qualifiers: [place] vs. transplanted heart: [place] heart Associated angina: without angina Qualified Code(s): I25.10 - Atherosclerotic heart disease of [place] coronary artery without angina pectoris (6) Dyslipidemia Current Visit: No Status: Chronic Assessment and plan: Chronic, resume home meds - Subjective Interval history: 65 Y/O M admitted for management of viral syndrome in the background of melanoma (s/p resection with negative sentinel lymph nodes) and recent immunotherapy Empiric antibiotics had been started on admission His work up has been negative for any source of infection Chest CT rued out a pneumonia, Flu swab is negative He is seen this morning, feeling better, spouse at the bedside His last fever was this morning at ~4.25a.m, 100.7 BP remains WNL, no leukocytosis Sputum and blood cultures are negative so far patient denies any urinary symptoms, nor skin rash, nor any ulcers or wounds anywhere - Constitutional Vitals: Temp Pulse Resp BP Pulse Ox 98.2 F 82 16 132/82 94 L 04/21/16 10:58 04/21/16 10:58 04/21/16 11:04 04/21/16 10:58 04/21/16 11:04 General appearance: Present: A&O X 3, pleasant, no acute distress - Head Head exam: Present: atraumatic, normocephalic - Eye Eye exam: Present: PERRL, conjuntiva pink, sclera anicteric Pupils: Present: PERRL - Neck Neck exam general surgery: Present: supple, trachea midline. Absent: lymphadenopathy - Respiratory Respiratory exam: Absent: accessory muscle use, rales, rhonchi, wheezes Additional comments: Basilar inspiratory crackles - Cardiovascular Cardiovascular exam: Present: RRR, +S1, +S2. Absent: diastolic murmur, gallop, rubs, systolic murmur - GI/Abdominal GI/Abdominal exam: Present: normal bowel sounds, soft, no peritoneal signs. Absent: distended, tenderness - Extremities Exam Extremities exam: Present: warm, radial pulses palpable and symetrical. Absent : calf tenderness, cyanotic, pedal edema - Neurological Exam Neurological exam: Present: CN II-XII intact, oriented X3, no focal deficits. Absent: pronater drift, facial droop, speech deficit - Skin Skin exam: Present: dry, intact Internal Medicine: Result - Labs CBC & Chem 7: 04/21/16 05:35 04/21/16 05:35 Labs: Short CBC 04/21/16 Range/Units 05:35 WBC 6.4 (4.3-11.1) K/mcL Hgb 11.9 L (12.9-16.9) g/dL Hct 34.9 L (37.5-50.1) % Plt Count 191 (140-400) K/mcL Neutrophils # 2.6 (1.6-8.9) K/mcL BMP 04/21/16 05:35 Sodium 134 L Potassium 3.8 Chloride 103 Carbon Dioxide 20 BUN 5 L Creatinine 0.82 Glucose 96 Calcium 8.5 L - ABG Interpretation ABG results: ABG ABG pH 7.41 pH Units (7.32-7.45) 04/19/16 12:54 ABG pCO2 46 mmHg (35-45) H 04/19/16 12:54 ABG pO2 80 mmHg (85-104) L 04/19/16 12:54 ABG O2 Saturation 96 % (95-98) 04/19/16 12:54 PT/INR, D-dimer PT 13.6 Seconds (9.4-12.1) H 04/19/16 11:46 Consult Discharge Plan - Plan Referrals: Yash Thomas MD [Primary Care Provider] - 04/28/16 10:00 am ( )
[2016-04-21] MEDS: Temazepam 15 MG CAPSULE PO SCH (19:56)
[2016-04-22 06:18] LABS: Basophils # 0.1 K/mcL (0.0-0.2); Eosinophils # 0.8 K/mcL (0.0-0.6); Eosinophils % 13.1 %; Hematocrit 36.5 % (37.5-50.1); Hemoglobin 12.4 g/dL (12.9-16.9); Immature Granulocytes % 0.2 % (0-4); Lymphocytes # 2.2 K/mcL (0.6-4.6); Mean Corpuscular Hemoglobin 30.4 pg (28.0-33.3); Mean Corpuscular Volume 89.5 fL (83.0-100.0); Monocytes # 0.7 K/mcL (0.0-1.3); Monocytes % 12.2 %; Neutrophils # 2.1 K/mcL (1.6-8.9); Platelet Count 212 K/mcL (140-400); Red Blood Count 4.08 M/mcL (4.19-5.50); Red Cell Distribution Width 12.9 % (11.5-14.5); Segmented Neutrophils % 35.5 %
[2016-04-22] MEDS: Oseltamivir Phosphate 30 MG CAPSULE PO SCH (06:32)
[2016-04-22] MEDS: *HR* Heparin 5,000 UNIT/ML VIAL SQ SCH (06:32)
[2016-04-22 06:34] LABS: BUN/Creatinine Ratio 7 (6-26); Calcium 8.5 mg/dL (8.6-10.8); Carbon Dioxide 20 mEq/L (19-29); Chloride 99 mEq/L (98-109); Glucose 91 mg/dL (70-99); Osmolality,Calculated 265 (280-300); Sodium 129 mEq/L (136-145); eGFR For African Americans > 60 (> 60); eGFR For Non-African Americans > 60 (> 60)
[2016-04-22 06:35] LABS: Blood Urea Nitrogen 5 mg/dL (8-26)
[2016-04-22] MEDS: Levothyroxine 25 MCG TABLET PO SCH (07:55)
[2016-04-22] MEDS ORDERED: amLODIPine 5 MG TABLET PO ONE (08:50)
[2016-04-22 11:22] VITALS: BP 134/83
--- NOTE | 2016-04-22 12:33 | Discharge Summary ---
Date of Encounter: 04/22/16 Time of Encounter: 12:33 - Discharge Diagnosis (1) Viral syndrome Priority: Primary Status: Acute (2) NADEEN (acute kidney injury) Priority: Primary Status: Resolved (3) Hypertension Priority: Secondary Status: Chronic Qualifiers: Hypertension type: essential hypertension Qualified Code(s): I10 - Essential (primary) hypertension (4) Melanoma Priority: Secondary Status: Chronic Qualifiers: Melanoma location: upper extremity including shoulder Laterality: right Qualified Code(s): C43.61 - Malignant melanoma of right upper limb, including shoulder (5) CAD (coronary artery disease), [place] coronary artery Priority: Secondary Status: Chronic Qualifiers: [place] vs. transplanted heart: [place] heart Associated angina: without angina Qualified Code(s): I25.10 - Atherosclerotic heart disease of [place] coronary artery without angina pectoris (6) Dyslipidemia Priority: Secondary Status: Chronic - Discharge Medications Prescriptions: GuaiFENesin/Dextromethorphan [Robitussin/Dm] 10 ml PO Q6HR PRN #2 udc PRN Reason: Cough Oseltamivir Phosphate [Tamiflu] 30 mg PO Q12H #4 capsule Home Medications: Atorvastatin Calcium [Lipitor] 20 mg PO DAILY 04/01/16 [History] Clopidogrel [Plavix] 75 mg PO DAILY 04/01/16 [History] Fexofenadine HCl 60 mg PO DAILY PRN 04/01/16 [History] Levothyroxine [Synthroid] 25 mcg PO DAILY 04/01/16 [History] Melatonin 5 mg PO HS 04/01/16 [History] Temazepam [Restoril] 15 mg PO HS 04/01/16 [History] Benzonatate [Tessalon] 200 mg PO TID PRN #30 capsule 04/06/16 [Rx] Ciprofloxacin [Cipro] 500 mg PO BID 04/19/16 [History] Amlodipine [Norvasc] 10 mg PO DAILY #0 04/22/16 [Rx] GuaiFENesin/Dextromethorphan [Robitussin/Dm] 10 ml PO Q6HR PRN #2 udc 04/22/16 [ Rx] Oseltamivir Phosphate [Tamiflu] 30 mg PO Q12H #4 capsule 04/22/16 [Rx] Allergies/Adverse Reactions: Allergies No Known Allergies Allergy (Verified 02/15/16 16:32) Date of admission: 04/20/16 15:42 Primary care physician: Yash Thomas MD Discharging clinician: Baljeet Stauffer Anticipated date of discharge: 04/22/16 - Patient Status Disposition: Home, Self-Care Condition: Fair Functional capacity at discharge: independent ambulation Overall status at discharge: patient is progressing back to baseline - Discharge Instructions Instructions: Sepsis (DC), Pneumonia (DC) Follow Up With: Yash Thomas MD [Primary Care Provider] - 04/28/16 10:00 am ( ) - Diet and Activity Activity: resume usual activities as tolerated Diet: low fat, low cholesterol, low salt diet Interval History: See below Hospital course: 65 Y/O M admitted for management of viral syndrome in the background of melanoma (s/p resection with negative sentinel lymph nodes) and recent immunotherapy He also had hypotension on admission and NADEEN Empiric antibiotics had been started on admission, however, his work up was negative for any source of infection CXR and Chest CT rued out a pneumonia, Flu swab is negative. Sputum culture was negative with normal respiratory keyla. Blood culture was negative and UA was unremarkable He is seen this morning, reports feeling, better, ambulatory in no distress He has been afebrile for >24 hours Due to his hypotension and NADEEN, he received IVF hydration and his home Amlodipine and ARB were held BP has returned to baseline and amlodipine 10mg po daily was restarted, well tolerated He was started empirically on Tamiflu due to the typical Flu-like symptoms he presented with He is stable for discharge home to complete Tamiflu, and follow up with his PCP and Oncologist HIs immunization is up to date Plan of care discussed, verbalizes understanding - Time Spent with Patient Total time spent providing and/or coordinating discharge services: Less than 30 minutes - Constitutional Vitals: Temp Pulse Resp BP Pulse Ox 98.2 F 84 18 134/83 93 L 04/22/16 11:20 04/22/16 11:20 04/22/16 11:20 04/22/16 11:20 04/22/16 11:20 General appearance: Present: A&O X 3, pleasant, no acute distress - Head Head exam: Present: atraumatic, normocephalic - Eye Eye exam: Present: PERRL, conjuntiva pink, sclera anicteric Pupils: Present: PERRL - Neck Neck exam general surgery: Present: supple, trachea midline. Absent: lymphadenopathy - Respiratory Respiratory exam: Present: CTAB. Absent: accessory muscle use, rales, rhonchi, wheezes - Cardiovascular Cardiovascular exam: Present: RRR, +S1, +S2. Absent: diastolic murmur, gallop, rubs, systolic murmur - GI/Abdominal GI/Abdominal exam: Present: normal bowel sounds, soft, no peritoneal signs. Absent: distended, tenderness - Extremities Exam Extremities exam: Present: warm, radial pulses palpable and symetrical. Absent : calf tenderness, cyanotic, pedal edema - Neurological Exam Neurological exam: Present: CN II-XII intact, oriented X3, no focal deficits. Absent: pronater drift, facial droop, speech deficit - Skin Skin exam: Present: dry, intact
[2016-04-22] MEDS ORDERED: FLU VACC QS2016-17 36MOS UP/PF 0.5 ML SYRINGE IM ONE (13:05)
[2016-04-23] MEDS ORDERED: amLODIPine 5 MG TABLET PO SCH (09:00)
== END 2016-04-22 13:36 | disposition home or self-care (01) | DRG 865 ==
LOC: 2ANU 11:17 → EMEROO 11:17 → 2ANU 16:24
PROVIDERS: ADMIT Internal Medicine; ATTEND Internal Medicine